=== PATIENT | female | born 1940 | race Caucasian/White ===

== ENCOUNTER 2017-01-30 17:39 | Emergency (ER) | payer MEDICARE ==
[~2017-01-30] VITALS: Ht 172.7 cm; Wt 60.0 kg
[~2017-01-30 17:39] MED LIST: ALBU8.5H8 INH; AMLO5TAB2 PO; AMLO5TAB4 PO; ASPI81TA50 PO; BUTA1CAP57 PO; DULO30CA2 PO; GUAI12003 PO; GUAI5SYR PO; HYDR-3307 PO; LANS15CA PO; LEVO112T4 PO; LEVO125T5 PO; LEVO150T5 PO; LEVO750T26 PO; LEVO750T6 PO; LISI2.5T PO; MECL-76 PO; METO25TA9 PO; METR500T8 PO; MIRT45TA3 PO; MIRT45TA6 PO; ONDA4VIA4 PO; POLY17PO5 PO; SIMV20TA3 PO; SIMV40TA3 PO; SIMV5TAB PO
[2017-01-30] MEDS ORDERED: ASPIRIN 81 MG TABLET CHEW ONE (17:54)
[2017-01-30] MEDS ORDERED: SODIUM CHLORIDE 0.9% 1,000ML IVBOLUS ONE (18:00)
[2017-01-30] MEDS ORDERED: SODIUM CHLORIDE FLUSH 10ML SYR IVF ONE (18:00)
[2017-01-30] MEDS ORDERED: ASPIRIN 81 MG TABLET CHEW PO ONE (18:00)
[2017-01-30 18:19] LABS: HEMATOCRIT 39.6 % (34.6-47.8); HEMOGLOBIN 13.2 g/dL (11.7-16.4); WHITE BLOOD COUNT 7.8 x10^3/uL (3.4-10)
[2017-01-30 18:31] LABS: BLOOD UREA NITROGEN 21 mg/dL (7-18)
[2017-01-30 18:37] LABS: ASPARTATE AMINO TRANSFERASE 15 U/L (15-37)
[2017-01-30 18:42] LABS: IS PT STATUS REG ER OR PRE ER? YES
[2017-01-30] MEDS ORDERED: MORPHINE SULFATE 4 MG/ML, 1ML ONE (19:21)
[2017-01-30] MEDS ORDERED: CEFTRIAXONE PMX 1GM/50ML 50 ML ONE (19:21)
[2017-01-30] MEDS ORDERED: ONDANSETRON 2MG/ML, 2ML ONE (19:21)
[2017-01-30] MEDS ORDERED: ONDANSETRON 2MG/ML, 2ML IVPush ONE (19:30)
[2017-01-30] MEDS ORDERED: CEFTRIAXONE PMX 1GM/50ML 50 ML IVPB ONE (19:30)
[2017-01-30] MEDS ORDERED: MORPHINE SULFATE 4 MG/ML, 1ML IVPush PRN (19:30)
[2017-01-30 20:46] VITALS: BP 143/89
== END 2017-01-30 20:48 | disposition home or self-care (01) ==
LOC: ED 17:57
DX: R07.2 Precordial pain (principal); R06.00 Dyspnea, unspecified; J02.8 Acute pharyngitis due to other specified organisms; I10 Essential (primary) hypertension; E11.9 Type 2 diabetes mellitus without complications; Z87.891 Personal history of nicotine dependence
CPT/HCPCS: 36415; 71010; 80053; 84484; 85025; 93005; 96361; 96365; 96375; 99285; J0696; J2405; J7030

== ENCOUNTER 2017-04-23 21:52 | Emergency (ER) | payer MEDICARE ==
[~2017-04-23] VITALS: Ht 172.7 cm; Wt 68.0 kg
[~2017-04-23 21:52] MED LIST changes: +METO-282 PO; -METO25TA9 PO; +SULF1TAB24 PO
[2017-04-23] MEDS ORDERED: ONDANSETRON 2MG/ML, 2ML ONE (21:58)
[2017-04-23] MEDS ORDERED: ONDANSETRON 2MG/ML, 2ML IVPush ONE (22:00)
[2017-04-23] MEDS ORDERED: BUPIVACAINE/PF 0.5% ONE (22:24)
[2017-04-23] MEDS ORDERED: DIPHENHYDRAMINE 50 MG/ML, 1ML IVPush ONE (22:30)
[2017-04-23] MEDS ORDERED: MORPHINE SULFATE 4 MG/ML, 1ML IVPush PRN (22:30)
[2017-04-23] MEDS ORDERED: SODIUM CHLORIDE 0.9% 1,000ML IVBOLUS ONE (22:30)
[2017-04-23] MEDS ORDERED: METOCLOPRAMIDE 5 MG/ML, 2ML IVPush ONE (22:30)
[2017-04-23] MEDS ORDERED: PLEASE ENTER HEIGHT AND WEIGHT MC SCH (22:30)
[2017-04-23 22:48] LABS: HEMATOCRIT 39.2 % (34.6-47.8); WHITE BLOOD COUNT 11.4 x10^3/uL (3.4-10)
[2017-04-23 22:56] LABS: BLOOD UREA NITROGEN 15 mg/dL (7-18)
[2017-04-23] MEDS ORDERED: DIPHENHYDRAMINE 50 MG/ML, 1ML ONE (23:01)
[2017-04-23] MEDS ORDERED: METOCLOPRAMIDE 5 MG/ML, 2ML ONE (23:01)
[2017-04-23] MEDS ORDERED: morphine SULFATE 10 MG/ML, 1ML ONE (23:18)
[2017-04-23] MEDS ORDERED: LIDOCAINE 1%, 10ML INFIL ONE (23:30)
[2017-04-24 01:22] LABS: PATH.CAST-FLAG NOT PRESENT; SPERM-FLAG NOT PRESENT; SRC-FLAG NOT PRESENT; XTAL-FLAG NOT PRESENT; YLC-FLAG NOT PRESENT
[2017-04-24 02:43] VITALS: BP 133/64
== END 2017-04-24 02:54 | disposition home or self-care (01) ==
LOC: ED 22:51
DX: R51 Headache (principal); R11.2 Nausea with vomiting, unspecified; M54.2 Cervicalgia; J44.9 Chronic obstructive pulmonary disease, unspecified; E78.00 Pure hypercholesterolemia, unspecified; I10 Essential (primary) hypertension; E11.9 Type 2 diabetes mellitus without complications; E03.9 Hypothyroidism, unspecified; Z86.73 Personal history of transient ischemic attack (TIA), and cerebral infarction without residual deficits; Z88.0 Allergy status to penicillin; Z88.1 Allergy status to other antibiotic agents; Z88.2 Allergy status to sulfonamides; Z88.8 Allergy status to other drugs, medicaments and biological substances; Z87.891 Personal history of nicotine dependence
CPT/HCPCS: 36415; 70450; 80048; 81001; 82040; 85025; 87086; 96374; 96375; 99285; J1200; J2405; J2765; J7030

== ENCOUNTER 2017-05-20 03:49 | Emergency (ER) | payer MEDICARE ==
[~2017-05-20] VITALS: Ht 172.7 cm; Wt 71.0 kg
[2017-05-20 03:58] VITALS: BP 185/101
[2017-05-20 04:39] LABS: BASOPHILS # (AUTO) 0.13 x10^3/uL (0-0.1); BASOPHILS % (AUTO) 2 % (0-1); EOSINOPHILS # (AUTO) 0.36 x10^3/uL (0-0.4); EOSINOPHILS % (AUTO) 4 % (1-7); LYMPHOCYTES # (AUTO) 1.58 x10^3/uL (1-3.4); LYMPHOCYTES % (AUTO) 18 % (22-44); MD NO; MEAN CORPUSCULAR HEMOGLOBIN 28.8 pg (27.0-34.8); MEAN CORPUSCULAR HGB CONC 33.3 g/dL (32.4-35.8); MEAN CORPUSCULAR VOLUME 86.5 fL (80-100); MEAN PLATELET VOLUME 9.6 fL (7.4-10.4); MONOCYTES # (AUTO) 0.49 x10^3/uL (0.2-0.8); MONOCYTES % (AUTO) 6 % (2-9); NEUTROPHILS # (AUTO) 6.32 x10^3/uL (1.8-6.8); NEUTROPHILS % (AUTO) 71 % (42-75); PLATELET COUNT 190 x10^3/uL (130-400); RED BLOOD COUNT 4.89 x10^6/uL (3.82-5.3); RED CELL DISTRIBUTION WIDTH 15.1 % (9.6-15.2)
[2017-05-20 04:45] LABS: ALBUMIN 3.5 g/dL (3.4-5.0); ANION GAP 7 mmol/L (5-15); CALCIUM 9.1 mg/dL (8.5-10.1); CHLORIDE 105 mmol/L (98-107); CREATININE 0.94 mg/dL (0.55-1.02)
[2017-05-20 04:48] LABS: TROPONIN I < 0.015 ng/mL (0.000-0.045)
[2017-05-20] MEDS ORDERED: KETOROLAC 30 MG/1 ML IVPush ONE (05:30)
[2017-05-20] MEDS ORDERED: KETOROLAC 30 MG/1 ML ONE (05:52)
== END 2017-05-20 06:06 | disposition home or self-care (01) ==
LOC: ED 06:00
DX: R07.89 Other chest pain (principal); G44.219 Episodic tension-type headache, not intractable; R05 Cough; E03.9 Hypothyroidism, unspecified; J44.9 Chronic obstructive pulmonary disease, unspecified; I10 Essential (primary) hypertension; E11.9 Type 2 diabetes mellitus without complications; E78.00 Pure hypercholesterolemia, unspecified; I25.2 Old myocardial infarction; M19.90 Unspecified osteoarthritis, unspecified site; M81.0 Age-related osteoporosis without current pathological fracture; Z90.49 Acquired absence of other specified parts of digestive tract; Z86.73 Personal history of transient ischemic attack (TIA), and cerebral infarction without residual deficits
CPT/HCPCS: 36415; 71045; 80048; 82040; 84484; 85025; 93005; 96374; 99285; J1885

== ENCOUNTER 2017-06-27 16:33 | Inpatient (IN) | payer MEDICARE ==
[~2017-06-27] VITALS: Ht 172.7 cm; Wt 69.3 kg
[2017-06-27] MEDS ORDERED: PLEASE ENTER HEIGHT AND WEIGHT MC SCH (17:00)
[2017-06-27] MEDS ORDERED: HYDROcodone/APAP 10/325 MG TABLET PO ONE (17:00)
[2017-06-27] MEDS ORDERED: SODIUM CHLORIDE 0.9%, 500ML IVBOLUS ONE (17:00)
[2017-06-27 17:25] LABS: ALANINE AMINOTRANSFERASE 22 U/L (12-78); ALBUMIN 3.1 g/dL (3.4-5.0); ANION GAP 7 mmol/L (5-15); CALCIUM 8.4 mg/dL (8.5-10.1); CHLORIDE 110 mmol/L (98-107)
[2017-06-27 17:27] LABS: BASOPHILS # (AUTO) 0.04 x10^3/uL (0-0.1); BASOPHILS % (AUTO) 1 % (0-1); EOSINOPHILS # (AUTO) 0.44 x10^3/uL (0-0.4); EOSINOPHILS % (AUTO) 7 % (1-7); LYMPHOCYTES # (AUTO) 1.24 x10^3/uL (1-3.4); LYMPHOCYTES % (AUTO) 20 % (22-44); MD NO; MEAN CORPUSCULAR HEMOGLOBIN 29.8 pg (27.0-34.8); MEAN CORPUSCULAR HGB CONC 33.4 g/dL (32.4-35.8); MEAN CORPUSCULAR VOLUME 89.2 fL (80-100); MEAN PLATELET VOLUME 9.4 fL (7.4-10.4); MONOCYTES # (AUTO) 0.48 x10^3/uL (0.2-0.8); MONOCYTES % (AUTO) 8 % (2-9); NEUTROPHILS # (AUTO) 4.05 x10^3/uL (1.8-6.8); NEUTROPHILS % (AUTO) 65 % (42-75); PLATELET COUNT 187 x10^3/uL (130-400); RED BLOOD COUNT 4.29 x10^6/uL (3.82-5.3); RED CELL DISTRIBUTION WIDTH 16.6 % (9.6-15.2)
[2017-06-27 17:28] LABS: ALKALINE PHOSPHATASE 130 U/L (45-117); BILIRUBIN,TOTAL 0.3 mg/dL (0.2-1.0); CREATININE 1.09 mg/dL (0.55-1.02); TOTAL PROTEIN 6.3 g/dL (6.4-8.2)
[2017-06-27] MEDS ORDERED: HYDROcodone/APAP 10/325 MG TABLET ONE (17:36)
[2017-06-27 18:09] LABS: RAPID INFLUENZA A Negative (Negative); RAPID INFLUENZA B Negative (Negative)
[2017-06-27] MEDS ORDERED: methylPREDNISolone SOD SUCC 125 MG/2 ML IVPush SCH (18:30)
[2017-06-27] MEDS ORDERED: ALBUTEROL/IPRATROPIUM 2.5MG/0.5MG, 3 ML NPPB ONE (18:30)
[2017-06-27] MEDS ORDERED: MIRT30TA PO (18:30)
[2017-06-27] MEDS ORDERED: ALBUTEROL/IPRATROPIUM 2.5MG/0.5MG, 3 ML ONE (18:40)
[2017-06-27] MEDS ORDERED: methylPREDNISolone SOD SUCC 125 MG/2 ML ONE (18:49)
[2017-06-27] MEDS ORDERED: ACETAMINOPHEN 325 MG TABLET PO PRN (19:00)
[2017-06-27] MEDS ORDERED: OXYcodone IR 5MG TABLET PO PRN (19:00)
[2017-06-27] MEDS ORDERED: ENALAPRILAT 1.25 MG/ML, 2ML IVPush PRN (19:00)
[2017-06-27] MEDS ORDERED: POLYETHYLENE GLYCOL 17 GM PACKET PO PRN (19:00)
[2017-06-27] MEDS ORDERED: BISACODYL 10 MG SUPP PR PRN (19:00)
[2017-06-27] MEDS: methylPREDNISolone SOD SUCC 125 MG/2 ML IVPush SCH (19:25)
[2017-06-27 19:28] LABS: HEMOGLOBIN A1C 5.4 % (4.2-6.3)
[2017-06-27 19:29] LABS: FREE T4 (FREE THYROXINE) 1.38 ng/dL (0.76-1.46); THYROID STIMULATING HORMONE 0.544 mIU/L (0.358-3.740)
[2017-06-27] MEDS ORDERED: ALBUTEROL SULFATE 2.5 MG/3 ML NEB PRN (19:30)
[2017-06-27] MEDS ORDERED: MECLIZINE CHEWABLE 25 MG TAB PO SCH (19:30)
[2017-06-27] MEDS ORDERED: POTASSIUM CHLORIDE 20 MEQ TAB.ER.PRT PO ONE (19:30)
[2017-06-27] MEDS: MIRTAZAPINE 30 MG TAB.RAPDIS PO SCH (21:00)
[2017-06-27] MEDS ORDERED: ENOXAPARIN 30 MG/0.3 ML SQ SCH (21:30)
[2017-06-27 21:41] VITALS: BP 179/95
[2017-06-27] MEDS: DOXYCYCLINE 100MG TABLET PO SCH (21:53)
[2017-06-27] MEDS: DULOXETINE 30 MG CAPSULE.DR PO SCH (21:53)
[2017-06-27] MEDS: HYDROcodone/APAP 10/325 MG TABLET PO SCH (21:54)
[2017-06-27] MEDS: hydrALAzine 20 MG/ML, 1ML IVPush PRN (21:54)
[2017-06-27] MEDS: FAMOTIDINE 20 MG/2 ML IVPush SCH (21:54)
[2017-06-27] MEDS: SIMVASTATIN 40 MG TABLET PO SCH (21:54)
[2017-06-27 22:50] VITALS: BP 157/97
[2017-06-27] MEDS: FUROSEMIDE 20 MG/2 ML IV SCH (23:10)
[2017-06-28 00:09] LABS: MICROSCOPIC AUTO
[2017-06-28 00:10] LABS: CULTURE INDICATED? YES
[2017-06-28 00:13] LABS: TROPONIN I < 0.015 ng/mL (0.000-0.045)
[2017-06-28 00:49] VITALS: BP 163/80
[2017-06-28] MEDS: methylPREDNISolone SOD SUCC 125 MG/2 ML IVPush SCH ×4 (00:51→18:14)
[2017-06-28] MEDS: HYDROcodone/APAP 10/325 MG TABLET PO SCH ×3 (03:30→21:54)
[2017-06-28 06:11] LABS: BASOPHILS # (AUTO) 0.01 x10^3/uL (0-0.1); BASOPHILS % (AUTO) 0 % (0-1); EOSINOPHILS % (AUTO) 0 % (1-7); LYMPHOCYTES # (AUTO) 0.53 x10^3/uL (1-3.4); LYMPHOCYTES % (AUTO) 10 % (22-44); MD NO; MEAN CORPUSCULAR HEMOGLOBIN 29.6 pg (27.0-34.8); MEAN CORPUSCULAR HGB CONC 33.4 g/dL (32.4-35.8); MEAN CORPUSCULAR VOLUME 88.7 fL (80-100); MEAN PLATELET VOLUME 9.3 fL (7.4-10.4); MONOCYTES # (AUTO) 0.06 x10^3/uL (0.2-0.8); MONOCYTES % (AUTO) 1 % (2-9); NEUTROPHILS # (AUTO) 4.82 x10^3/uL (1.8-6.8); NEUTROPHILS % (AUTO) 89 % (42-75); PLATELET COUNT 221 x10^3/uL (130-400); RED BLOOD COUNT 4.61 x10^6/uL (3.82-5.3); RED CELL DISTRIBUTION WIDTH 16.3 % (9.6-15.2)
[2017-06-28 06:15] LABS: ALANINE AMINOTRANSFERASE 23 U/L (12-78); ALBUMIN 3.2 g/dL (3.4-5.0); ANION GAP 7 mmol/L (5-15); CHLORIDE 109 mmol/L (98-107)
[2017-06-28 06:17] LABS: ALKALINE PHOSPHATASE 126 U/L (45-117); BILIRUBIN,TOTAL 0.3 mg/dL (0.2-1.0); CHOL/HDL RATIO 2.7; CHOLESTEROL, TOTAL 149 mg/dL (140-239); CREATININE 0.95 mg/dL (0.55-1.02); HDL CHOL % 38 % (28-40); HDL CHOLESTEROL (DIRECT) 56 mg/dL (40-60); LDL CHOLESTEROL,CALCULATED 79 mg/dL (54-169); LDL/HDL RATIO 1.4 (0.5-3.0); TOTAL PROTEIN 6.9 g/dL (6.4-8.2); TRIGLYCERIDES 68 mg/dL (50-200); VLDL CHOLESTEROL 14 mg/dL (0-25)
[2017-06-28 07:01] LABS: TROPONIN I < 0.015 ng/mL (0.000-0.045)
[2017-06-28] MEDS: ALBUTEROL/IPRATROPIUM 2.5MG/0.5MG, 3 ML NPPB SCH ×4 (07:13→19:31)
[2017-06-28] MEDS: LEVOTHYROXINE 112 MCG TABLET PO SCH (08:07)
[2017-06-28] MEDS: SENNA/DOCUSATE TABLET PO SCH (08:07)
[2017-06-28] MEDS: DULOXETINE 30 MG CAPSULE.DR PO SCH ×2 (08:07→21:55)
[2017-06-28] MEDS: ASPIRIN 325 MG TABLET EC PO SCH (08:07)
[2017-06-28] MEDS: DOXYCYCLINE 100MG TABLET PO SCH ×2 (08:07→21:54)
[2017-06-28] MEDS: OMEPRAZOLE 10 MG CAPSULE.DR PO SCH (08:07)
[2017-06-28] MEDS: FAMOTIDINE 20 MG/2 ML IVPush SCH ×2 (08:18→21:55)
[2017-06-28] MEDS: ONDANSETRON 2MG/ML, 2ML IVPush PRN (08:18)
[2017-06-28 08:53] VITALS: BP 178/97
[2017-06-28] MEDS ORDERED: LISINOPRIL 5 MG TABLET PO SCH (09:00)
[2017-06-28] MEDS: FLUTICASONE/VILANTEROL 200-25MCG/INH INH SCH (09:33)
[2017-06-28] MEDS: hydrALAzine 20 MG/ML, 1ML IVPush PRN (09:39)
[2017-06-28] MEDS: morphine SULFATE 10 MG/ML, 1ML IVPush PRN ×2 (09:39→14:13)
[2017-06-28] MEDS: GUAIFENESIN ER 600 MG TABLET PO SCH ×2 (13:49→21:55)
[2017-06-28 13:54] VITALS: BP 145/70
[2017-06-28 19:17] VITALS: BP 146/81
[2017-06-28] MEDS: MIRTAZAPINE 30 MG TAB.RAPDIS PO SCH (21:55)
[2017-06-28] MEDS: SIMVASTATIN 40 MG TABLET PO SCH (21:55)
[2017-06-28] MEDS: ENOXAPARIN 40 MG/0.4 ML SQ SCH (22:03)
[2017-06-28] MEDS: FUROSEMIDE 20 MG/2 ML IV SCH (22:03)
[2017-06-29] MEDS: methylPREDNISolone SOD SUCC 125 MG/2 ML IVPush SCH ×3 (02:17→13:00)
[2017-06-29 03:27] VITALS: BP 128/77
[2017-06-29] MEDS: HYDROcodone/APAP 10/325 MG TABLET PO SCH ×3 (03:30→20:33)
[2017-06-29 05:26] LABS: ANION GAP 6 mmol/L (5-15); CALCIUM 8.8 mg/dL (8.5-10.1); CHLORIDE 107 mmol/L (98-107); CREATININE 1.48 mg/dL (0.55-1.02)
[2017-06-29] MEDS: LEVOTHYROXINE 112 MCG TABLET PO SCH (06:21)
[2017-06-29] MEDS: ALBUTEROL/IPRATROPIUM 2.5MG/0.5MG, 3 ML NPPB SCH ×4 (06:33→20:07)
[2017-06-29 07:37] VITALS: BP 139/76
[2017-06-29] MEDS ORDERED: LISINOPRIL 5 MG TABLET PO SCH (09:00)
[2017-06-29] MEDS: FAMOTIDINE 20 MG/2 ML IVPush SCH (09:00)
[2017-06-29] MEDS: SENNA/DOCUSATE TABLET PO SCH (09:11)
[2017-06-29] MEDS: ASPIRIN 325 MG TABLET EC PO SCH (09:11)
[2017-06-29] MEDS: DULOXETINE 30 MG CAPSULE.DR PO SCH ×2 (09:11→20:33)
[2017-06-29] MEDS: OMEPRAZOLE 10 MG CAPSULE.DR PO SCH (09:11)
[2017-06-29] MEDS: FLUTICASONE/VILANTEROL 200-25MCG/INH INH SCH (09:11)
[2017-06-29] MEDS: GUAIFENESIN ER 600 MG TABLET PO SCH ×2 (09:11→20:33)
[2017-06-29] MEDS: DOXYCYCLINE 100MG TABLET PO SCH ×2 (09:11→20:33)
[2017-06-29] MEDS: AMLODIPINE 5 MG TABLET PO SCH (09:11)
[2017-06-29] MEDS: FLUTICASONE NASAL SPRAY 16GM NAS SCH ×2 (11:51→20:33)
[2017-06-29] MEDS: SODIUM CHLORIDE NASAL SPRAY 45ML BOTTLE NAS SCH ×2 (11:52→20:34)
[2017-06-29 14:32] VITALS: BP 111/52
[2017-06-29] MEDS ORDERED: PHARMACY MAY ADJ FOR RENAL FX MC PRN (15:00)
[2017-06-29] MEDS ORDERED: ERGOCALCIFEROL 50,000 UNIT CAPSULE PO SCH (15:00)
[2017-06-29] MEDS ORDERED: SODIUM CHLORIDE 0.9% 1,000 ML IV SCH (17:16)
[2017-06-29 19:28] VITALS: BP 144/81
[2017-06-29] MEDS: MIRTAZAPINE 30 MG TAB.RAPDIS PO SCH (20:33)
[2017-06-29] MEDS: SIMVASTATIN 40 MG TABLET PO SCH (20:34)
[2017-06-29] MEDS: ENOXAPARIN 40 MG/0.4 ML SQ SCH (20:35)
[2017-06-30 02:01] VITALS: BP 158/85
[2017-06-30] MEDS: HYDROcodone/APAP 10/325 MG TABLET PO SCH ×3 (03:30→21:03)
[2017-06-30] MEDS: ONDANSETRON 2MG/ML, 2ML IVPush PRN ×2 (05:32→12:50)
[2017-06-30] MEDS: LEVOTHYROXINE 112 MCG TABLET PO SCH (05:32)
[2017-06-30 05:50] LABS: ANION GAP 5 mmol/L (5-15); CALCIUM 8.7 mg/dL (8.5-10.1); CHLORIDE 109 mmol/L (98-107); CREATININE 0.88 mg/dL (0.55-1.02)
[2017-06-30] MEDS: ALBUTEROL/IPRATROPIUM 2.5MG/0.5MG, 3 ML NPPB SCH ×4 (06:00→20:35)
[2017-06-30 08:11] VITALS: BP 164/92
[2017-06-30] MEDS: FLUTICASONE/VILANTEROL 200-25MCG/INH INH SCH (09:00)
[2017-06-30] MEDS: SENNA/DOCUSATE TABLET PO SCH (09:00)
[2017-06-30] MEDS: FLUTICASONE NASAL SPRAY 16GM NAS SCH ×2 (09:00→21:00)
[2017-06-30] MEDS: SODIUM CHLORIDE NASAL SPRAY 45ML BOTTLE NAS SCH ×2 (09:00→21:00)
[2017-06-30] MEDS: DULOXETINE 30 MG CAPSULE.DR PO SCH ×2 (09:24→21:03)
[2017-06-30] MEDS: AMLODIPINE 5 MG TABLET PO SCH (09:24)
[2017-06-30] MEDS: ASPIRIN 325 MG TABLET EC PO SCH (09:24)
[2017-06-30] MEDS: OMEPRAZOLE 10 MG CAPSULE.DR PO SCH (09:24)
[2017-06-30] MEDS: GUAIFENESIN ER 600 MG TABLET PO SCH ×2 (09:24→21:03)
[2017-06-30] MEDS: DOXYCYCLINE 100MG TABLET PO SCH ×2 (09:25→21:03)
[2017-06-30 13:01] VITALS: BP 166/104
[2017-06-30] MEDS: hydrALAzine 20 MG/ML, 1ML IVPush PRN (13:19)
[2017-06-30 13:48] VITALS: BP 156/90
[2017-06-30] MEDS: PROCHLORPERAZINE 5 MG/ML, 2ML IM PRN ×2 (14:27→21:13)
[2017-06-30 19:04] VITALS: BP 147/79
[2017-06-30] MEDS: MIRTAZAPINE 30 MG TAB.RAPDIS PO SCH (21:03)
[2017-06-30] MEDS: SIMVASTATIN 40 MG TABLET PO SCH (21:04)
[2017-06-30] MEDS: ENOXAPARIN 40 MG/0.4 ML SQ SCH (21:14)
[2017-07-01 00:55] VITALS: BP 112/71
[2017-07-01] MEDS: LEVOTHYROXINE 112 MCG TABLET PO SCH (05:34)
[2017-07-01] MEDS: HYDROcodone/APAP 10/325 MG TABLET PO SCH ×3 (05:40→20:48)
[2017-07-01 06:52] VITALS: BP 128/74
[2017-07-01] MEDS: ALBUTEROL/IPRATROPIUM 2.5MG/0.5MG, 3 ML NPPB SCH ×3 (07:48→20:36)
[2017-07-01] MEDS: SODIUM CHLORIDE NASAL SPRAY 45ML BOTTLE NAS SCH ×2 (09:20→20:50)
[2017-07-01] MEDS: FLUTICASONE/VILANTEROL 200-25MCG/INH INH SCH (09:20)
[2017-07-01] MEDS: OMEPRAZOLE 10 MG CAPSULE.DR PO SCH (09:21)
[2017-07-01] MEDS: GUAIFENESIN ER 600 MG TABLET PO SCH ×2 (09:21→20:48)
[2017-07-01] MEDS: DOXYCYCLINE 100MG TABLET PO SCH ×2 (09:21→20:47)
[2017-07-01] MEDS: FLUTICASONE NASAL SPRAY 16GM NAS SCH ×2 (09:21→20:49)
[2017-07-01] MEDS: SENNA/DOCUSATE TABLET PO SCH (09:22)
[2017-07-01] MEDS: ASPIRIN 325 MG TABLET EC PO SCH (09:22)
[2017-07-01] MEDS: AMLODIPINE 5 MG TABLET PO SCH (09:22)
[2017-07-01] MEDS: DULOXETINE 30 MG CAPSULE.DR PO SCH ×2 (09:22→20:47)
[2017-07-01] MEDS: PROCHLORPERAZINE 5 MG/ML, 2ML IM PRN ×2 (09:38→18:42)
[2017-07-01 12:52] VITALS: BP 151/81
[2017-07-01 20:00] VITALS: BP 130/82
[2017-07-01] MEDS: MIRTAZAPINE 30 MG TAB.RAPDIS PO SCH (20:47)
[2017-07-01] MEDS: SIMVASTATIN 40 MG TABLET PO SCH (20:48)
[2017-07-01] MEDS: ENOXAPARIN 40 MG/0.4 ML SQ SCH (20:49)
[2017-07-02 02:13] VITALS: BP 152/98
[2017-07-02] MEDS: HYDROcodone/APAP 10/325 MG TABLET PO SCH ×2 (06:25→15:05)
[2017-07-02] MEDS: LEVOTHYROXINE 112 MCG TABLET PO SCH (06:25)
[2017-07-02] MEDS ORDERED: GUAI600T31 PO (08:01)
[2017-07-02] MEDS ORDERED: PRED20TA PO (08:01)
[2017-07-02] MEDS ORDERED: FLUT1BLS INH (08:01)
[2017-07-02] MEDS ORDERED: DOXY100T PO (08:01)
[2017-07-02] MEDS ORDERED: FLUT16SP NAS (08:04)
[2017-07-02] MEDS: SENNA/DOCUSATE TABLET PO SCH (08:31)
[2017-07-02] MEDS: FLUTICASONE/VILANTEROL 200-25MCG/INH INH SCH (08:33)
[2017-07-02] MEDS: SODIUM CHLORIDE NASAL SPRAY 45ML BOTTLE NAS SCH (08:33)
[2017-07-02] MEDS: DULOXETINE 30 MG CAPSULE.DR PO SCH (08:34)
[2017-07-02] MEDS: DOXYCYCLINE 100MG TABLET PO SCH (08:34)
[2017-07-02] MEDS: GUAIFENESIN ER 600 MG TABLET PO SCH (08:34)
[2017-07-02] MEDS: FLUTICASONE NASAL SPRAY 16GM NAS SCH (08:34)
[2017-07-02] MEDS: AMLODIPINE 5 MG TABLET PO SCH (08:34)
[2017-07-02] MEDS: ASPIRIN 325 MG TABLET EC PO SCH (08:34)
[2017-07-02] MEDS: OMEPRAZOLE 10 MG CAPSULE.DR PO SCH (08:34)
[2017-07-02 08:39] VITALS: BP 145/97
[2017-07-02] MEDS ORDERED: ONDANSETRON 4 MG TABLET PO PRN (09:00)
[2017-07-02] MEDS: ALBUTEROL/IPRATROPIUM 2.5MG/0.5MG, 3 ML NPPB SCH (09:25)
[2017-07-02 14:19] VITALS: BP 140/95
== END 2017-07-02 15:38 | disposition home or self-care (01) | DRG 682 ==
LOC: ED 17:56 → EDIP 18:28 → 4WST 21:16
PROVIDERS: ADMIT Internal Medicine; ATTEND Hospitalist
DX: N17.0 Acute kidney failure with tubular necrosis (principal); J96.20 Acute and chronic respiratory failure, unspecified whether with hypoxia or hypercapnia; E44.0 Moderate protein-calorie malnutrition; I07.1 Rheumatic tricuspid insufficiency; E11.9 Type 2 diabetes mellitus without complications; J32.0 Chronic maxillary sinusitis; J44.1 Chronic obstructive pulmonary disease with (acute) exacerbation; E03.9 Hypothyroidism, unspecified; I25.10 Atherosclerotic heart disease of native coronary artery without angina pectoris; E87.6 Hypokalemia; E78.5 Hyperlipidemia, unspecified; E55.9 Vitamin D deficiency, unspecified; E78.00 Pure hypercholesterolemia, unspecified; G89.29 Other chronic pain; M54.2 Cervicalgia; I11.9 Hypertensive heart disease without heart failure; I25.2 Old myocardial infarction; I35.8 Other nonrheumatic aortic valve disorders; K21.9 Gastro-esophageal reflux disease without esophagitis; K59.00 Constipation, unspecified; M79.7 Fibromyalgia; M81.0 Age-related osteoporosis without current pathological fracture; Z86.711 Personal history of pulmonary embolism; Z86.73 Personal history of transient ischemic attack (TIA), and cerebral infarction without residual deficits; Z87.891 Personal history of nicotine dependence; Z90.710 Acquired absence of both cervix and uterus; Z88.6 Allergy status to analgesic agent; Z88.3 Allergy status to other anti-infective agents; Z88.2 Allergy status to sulfonamides; Z88.8 Allergy status to other drugs, medicaments and biological substances; Z90.49 Acquired absence of other specified parts of digestive tract; Z68.23 Body mass index [BMI] 23.0-23.9, adult
CPT/HCPCS: 36415; 70450; 71045; 71250; 74018; 80048; 80053; 80061; 81001; 82306; 82607; 82962; 83036; 83605; 83735; 84145; 84439; 84443; 84484; 85025; 87040; 87086; 87400; 93005; 93306; 94640; 96374; J1650; J2405; J7620; Q0162; J0360; J0780; J1940; J2270; J2930; J7030; J7040; J7512; S0028

== ENCOUNTER 2018-01-31 09:32 | Inpatient (IN) | payer MEDICARE ==
[~2018-01-31] VITALS: Ht 172.7 cm; Wt 70.8 kg
[~2018-01-31 09:32] MED LIST changes: -AMLO5TAB2 PO; +AMLO5TAB7 PO; +DOXY100T PO; +FLUT16SP NAS; +FLUT1BLS INH; +GUAI600T31 PO; +MIRT30TA PO; -ONDA4VIA4 PO; +ONDA4VIA8 PO; +PRED20TA PO
[2018-01-31] MEDS ORDERED: SODIUM CHLORIDE 0.9% 1,000ML IVBOLUS ONE (10:00)
[2018-01-31 10:26] LABS: BASOPHILS % (AUTO) 1 % (0-1); EOSINOPHILS # (AUTO) 0.26 x10^3/uL (0-0.4); EOSINOPHILS % (AUTO) 3 % (1-7); LYMPHOCYTES % (AUTO) 11 % (22-44); MD NO; MEAN CORPUSCULAR HEMOGLOBIN 30.7 pg (27.0-34.8); MEAN CORPUSCULAR HGB CONC 33.9 g/dL (32.4-35.8); MEAN CORPUSCULAR VOLUME 90.3 fL (80-100); MEAN PLATELET VOLUME 8.9 fL (7.4-10.4); MONOCYTES # (AUTO) 0.52 x10^3/uL (0.2-0.8); MONOCYTES % (AUTO) 6 % (2-9); NEUTROPHILS # (AUTO) 7.51 x10^3/uL (1.8-6.8); NEUTROPHILS % (AUTO) 80 % (42-75); PLATELET COUNT 255 x10^3/uL (130-400); RED BLOOD COUNT 4.46 x10^6/uL (3.82-5.3); RED CELL DISTRIBUTION WIDTH 13.1 % (9.6-15.2)
[2018-01-31] MEDS ORDERED: ACETAMINOPHEN 500 MG TABLET ONE (10:30)
[2018-01-31 10:37] LABS: ALANINE AMINOTRANSFERASE 17 U/L (12-78); ALBUMIN 3.2 g/dL (3.4-5.0); ANION GAP 8 mmol/L (5-15); CALCIUM 8.5 mg/dL (8.5-10.1); CHLORIDE 111 mmol/L (98-107); CREATININE 1.13 mg/dL (0.55-1.02)
[2018-01-31 10:42] LABS: ALKALINE PHOSPHATASE 107 U/L (45-117); BILIRUBIN,TOTAL 0.4 mg/dL (0.2-1.0); TOTAL PROTEIN 6.4 g/dL (6.4-8.2); TROPONIN I < 0.015 ng/mL (0.000-0.045)
[2018-01-31] MEDS ORDERED: SODIUM CHLORIDE FLUSH 10ML SYR IVF ONE (11:00)
[2018-01-31] MEDS ORDERED: ACETAMINOPHEN 500 MG TABLET PO ONE (11:00)
[2018-01-31] MEDS ORDERED: IBUPROFEN 200 MG TABLET PO ONE (11:30)
[2018-01-31] MEDS ORDERED: IBUPROFEN 200 MG TABLET ONE (12:16)
[2018-01-31] MEDS ORDERED: LOSA50TA7 PO (13:44)
[2018-01-31] MEDS ORDERED: ALBU18HF INH (13:46)
[2018-01-31] MEDS ORDERED: TIOT18CA INH (13:46)
[2018-01-31] MEDS ORDERED: HYDR-3240 PO (13:47)
[2018-01-31] MEDS ORDERED: ASPI-650 PO (14:03)
[2018-01-31] MEDS ORDERED: ASA/APAP/ CAFFEINE TABLET PO PRN (15:00)
[2018-01-31] MEDS ORDERED: DOCUSATE 100 MG CAPSULE PO PRN (15:00)
[2018-01-31] MEDS ORDERED: NITROGLYCERIN 0.4 MG BOTTLE (25 TABS) SL PRN ×2 (15:00)
[2018-01-31] MEDS ORDERED: ALBUTEROL/IPRATROPIUM 2.5MG/0.5MG, 3 ML NPPB PRN (15:00)
[2018-01-31] MEDS ORDERED: GUAIFENESIN/DM 200-20MG, 10ML UDC PO PRN (15:00)
[2018-01-31] MEDS ORDERED: MECLIZINE CHEWABLE 25 MG TAB PO PRN (15:00)
[2018-01-31] MEDS ORDERED: hydrALAzine 20 MG/ML, 1ML IVPush PRN (15:00)
[2018-01-31] MEDS ORDERED: ENALAPRILAT 1.25 MG/ML, 2ML IVPush PRN (15:00)
[2018-01-31] MEDS ORDERED: ENOXAPARIN 40 MG/0.4 ML SQ SCH (15:00)
[2018-01-31] MEDS ORDERED: ACETAMINOPHEN 325 MG TABLET PO PRN (15:00)
[2018-01-31] MEDS ORDERED: ONDANSETRON 2MG/ML, 2ML IVPush PRN (15:00)
[2018-01-31] MEDS ORDERED: ONDANSETRON ODT 4 MG PO PRN (15:00)
[2018-01-31] MEDS ORDERED: IBUPROFEN 600 MG TABLET PO PRN (15:00)
[2018-01-31] MEDS ORDERED: NITROGLYCERIN 0.4 MG/SPRAY SL PRN (15:00)
[2018-01-31] MEDS ORDERED: ENOXAPARIN 40 MG/0.4 ML ONE (15:20)
[2018-01-31] MEDS ORDERED: HYDROcodone/APAP 5/325 TABLET ONE (15:21)
[2018-01-31] MEDS: HYDROcodone/APAP 5/325 TABLET PO PRN ×2 (15:24→20:09)
[2018-01-31 15:37] LABS: CULTURE INDICATED? YES; MICROSCOPIC INDICATED
[2018-01-31 18:42] VITALS: BP 126/70
[2018-01-31] MEDS: DULOXETINE 30 MG CAPSULE.DR PO SCH (20:09)
[2018-01-31] MEDS: SIMVASTATIN 40 MG TABLET PO SCH (20:10)
[2018-01-31] MEDS ORDERED: IPRATROPIUM 0.5 MG/2.5 ML INHA HHN SCH (21:00)
[2018-01-31] MEDS ORDERED: LANSOPRAZOLE 15 MG PO SCH (21:00)
[2018-01-31] MEDS: MIRTAZAPINE 30 MG TAB.RAPDIS PO SCH (21:45)
[2018-01-31 22:06] VITALS: BP 125/68
[2018-02-01 01:58] VITALS: BP 137/85
[2018-02-01 04:50] LABS: BASOPHILS # (AUTO) 0.05 x10^3/uL (0-0.1); BASOPHILS % (AUTO) 1 % (0-1); EOSINOPHILS # (AUTO) 0.47 x10^3/uL (0-0.4); EOSINOPHILS % (AUTO) 6 % (1-7); LYMPHOCYTES # (AUTO) 1.99 x10^3/uL (1-3.4); LYMPHOCYTES % (AUTO) 26 % (22-44); MD NO; MEAN CORPUSCULAR HGB CONC 33.2 g/dL (32.4-35.8); MEAN CORPUSCULAR VOLUME 90.3 fL (80-100); MEAN PLATELET VOLUME 8.8 fL (7.4-10.4); MONOCYTES # (AUTO) 0.52 x10^3/uL (0.2-0.8); MONOCYTES % (AUTO) 7 % (2-9); NEUTROPHILS # (AUTO) 4.55 x10^3/uL (1.8-6.8); NEUTROPHILS % (AUTO) 60 % (42-75); PLATELET COUNT 220 x10^3/uL (130-400); RED BLOOD COUNT 4.06 x10^6/uL (3.82-5.3); RED CELL DISTRIBUTION WIDTH 13.3 % (9.6-15.2)
[2018-02-01 05:00] LABS: ANION GAP 5 mmol/L (5-15); CALCIUM 8.8 mg/dL (8.5-10.1); CHLORIDE 108 mmol/L (98-107)
[2018-02-01 05:11] LABS: CHOL/HDL RATIO 3.8; CHOLESTEROL, TOTAL 141 mg/dL (140-239); CREATININE 1.69 mg/dL (0.55-1.02); HDL CHOL % 26 % (28-40); HDL CHOLESTEROL (DIRECT) 37 mg/dL (40-60); HEMOGLOBIN A1C 5.6 % (4.2-6.3); LDL CHOLESTEROL,CALCULATED 71 mg/dL (54-169); LDL/HDL RATIO 1.9 (0.5-3.0); THYROID STIMULATING HORMONE 0.164 mIU/L (0.358-3.740); TRIGLYCERIDES 163 mg/dL (50-200); VLDL CHOLESTEROL 33 mg/dL (0-25)
[2018-02-01 07:23] VITALS: BP 142/81
[2018-02-01 08:31] LABS: TROPONIN I < 0.015 ng/mL (0.000-0.045)
[2018-02-01] MEDS: HYDROcodone/APAP 5/325 TABLET PO PRN ×3 (08:37→21:18)
[2018-02-01] MEDS: LEVOTHYROXINE 112 MCG TABLET PO SCH (09:00)
[2018-02-01] MEDS: IPRATROPIUM 0.5 MG/2.5 ML INHA NPPB SCH ×3 (09:40→20:59)
[2018-02-01] MEDS ORDERED: REGADENOSON 0.4 MG/5 ML SYRINGE ONE (11:01)
[2018-02-01] MEDS: ASPIRIN 325 MG TABLET EC PO SCH (13:13)
[2018-02-01] MEDS: LOSARTAN 50MG TABLET PO SCH (13:14)
[2018-02-01] MEDS: DULOXETINE 30 MG CAPSULE.DR PO SCH ×2 (13:14→20:51)
[2018-02-01] MEDS ORDERED: ACET325T14 PO (13:33)
[2018-02-01] MEDS ORDERED: CEFTRIAXONE 2 GM in SODIUM CHLORIDE 0.9% 50 ML IV SCH (14:00)
[2018-02-01 14:32] VITALS: BP 151/86
[2018-02-01] MEDS: OMEPRAZOLE 20 MG CAPSULE.DR PO SCH (20:51)
[2018-02-01] MEDS: MIRTAZAPINE 30 MG TAB.RAPDIS PO SCH (20:51)
[2018-02-01] MEDS: SIMVASTATIN 40 MG TABLET PO SCH (20:52)
[2018-02-01 21:14] VITALS: BP 135/82
[2018-02-02 02:28] VITALS: BP 110/68
[2018-02-02] MEDS: IPRATROPIUM 0.5 MG/2.5 ML INHA NPPB SCH (03:00)
[2018-02-02] MEDS ORDERED: ERGOCALCIFEROL 50,000 UNIT CAPSULE PO SCH (07:00)
[2018-02-02] MEDS ORDERED: PANTOPROZOLE 40MG TABLET PO SCH (07:30)
[2018-02-02 07:36] LABS: ANION GAP 9 mmol/L (5-15); CALCIUM 8.8 mg/dL (8.5-10.1); CHLORIDE 110 mmol/L (98-107); CREATININE 1.02 mg/dL (0.55-1.02)
[2018-02-02 08:30] VITALS: BP 133/89
[2018-02-02] MEDS ORDERED: HYDROCHLOROTHIAZIDE 12.5 MG CAPSULE PO SCH (09:00)
[2018-02-02] MEDS ORDERED: HYDR12.53 PO (09:17)
[2018-02-02] MEDS ORDERED: CEFD300C37 PO (09:19)
[2018-02-02] MEDS: OMEPRAZOLE 20 MG CAPSULE.DR PO SCH (09:55)
[2018-02-02] MEDS: LOSARTAN 50MG TABLET PO SCH (09:55)
[2018-02-02] MEDS: ASPIRIN 325 MG TABLET EC PO SCH (09:55)
[2018-02-02] MEDS: LEVOTHYROXINE 112 MCG TABLET PO SCH (09:55)
[2018-02-02] MEDS: DULOXETINE 30 MG CAPSULE.DR PO SCH (09:55)
[2018-02-02] MEDS: HYDROcodone/APAP 5/325 TABLET PO PRN (12:57)
== END 2018-02-02 13:33 | disposition home or self-care (01) | DRG 291 ==
LOC: ED 11:18 → EDIP 11:19 → INTOOBSV 11:19 → ED 11:24 → OBSVTOIN 14:33 → 5SO 18:35 → 4EST 02-01 23:29
PROVIDERS: ADMIT Internal Medicine; ATTEND Internal Medicine
DX: I11.0 Hypertensive heart disease with heart failure (principal); J96.20 Acute and chronic respiratory failure, unspecified whether with hypoxia or hypercapnia; N39.0 Urinary tract infection, site not specified; E44.0 Moderate protein-calorie malnutrition; I50.30 Unspecified diastolic (congestive) heart failure; J44.9 Chronic obstructive pulmonary disease, unspecified; I25.2 Old myocardial infarction; G43.909 Migraine, unspecified, not intractable, without status migrainosus; E03.9 Hypothyroidism, unspecified; I10 Essential (primary) hypertension; E11.9 Type 2 diabetes mellitus without complications; B96.20 Unspecified Escherichia coli [E. coli] as the cause of diseases classified elsewhere; M81.0 Age-related osteoporosis without current pathological fracture; G89.29 Other chronic pain; M54.9 Dorsalgia, unspecified; F32.9 Major depressive disorder, single episode, unspecified; G44.209 Tension-type headache, unspecified, not intractable; R07.89 Other chest pain; E78.00 Pure hypercholesterolemia, unspecified; E78.5 Hyperlipidemia, unspecified; M19.90 Unspecified osteoarthritis, unspecified site; M79.7 Fibromyalgia; Z90.710 Acquired absence of both cervix and uterus; Z87.891 Personal history of nicotine dependence; Z86.73 Personal history of transient ischemic attack (TIA), and cerebral infarction without residual deficits; Z86.711 Personal history of pulmonary embolism; Z90.49 Acquired absence of other specified parts of digestive tract; Z82.49 Family history of ischemic heart disease and other diseases of the circulatory system; Z91.041 Radiographic dye allergy status; Z88.0 Allergy status to penicillin; Z88.2 Allergy status to sulfonamides; Z88.5 Allergy status to narcotic agent; Z88.8 Allergy status to other drugs, medicaments and biological substances; Z79.82 Long term (current) use of aspirin; Z79.899 Other long term (current) drug therapy; Z68.23 Body mass index [BMI] 23.0-23.9, adult; Z99.81 Dependence on supplemental oxygen; I25.110 Atherosclerotic heart disease of native coronary artery with unstable angina pectoris
CPT/HCPCS: 36415; 71045; 78452; 80048; 80053; 80061; 81001; 82306; 82607; 83036; 83735; 84443; 84484; 85025; 85379; 87077; 87086; 87186; 93005; 93017; 93306; 94640; 96360; 96361; 96372; 99285; G0378; J0696; J1650; J2785; J7644; A9502; C9898; J7030

== ENCOUNTER 2018-03-23 14:42 | Observation (INO) | payer MEDICARE ==
[~2018-03-23] VITALS: Ht 172.7 cm; Wt 72.8 kg
[~2018-03-23 14:42] MED LIST changes: +ACET325T14 PO; +ALBU18HF INH; +ASPI-650 PO; +CEFD300C37 PO; +HYDR-3240 PO; +HYDR12.53 PO; +LOSA50TA7 PO; +TIOT18CA INH
[2018-03-23] MEDS ORDERED: DIME50TA25 PO (15:10)
[2018-03-23] MEDS ORDERED: MECL12.52 PO (15:10)
[2018-03-23] MEDS ORDERED: OMEP-110 PO (15:10)
[2018-03-23] MEDS ORDERED: BUDE10.2 INH (15:10)
[2018-03-23] MEDS ORDERED: IBUP-1623 PO (15:10)
[2018-03-23] MEDS ORDERED: SIMV40TA3 PO (15:10)
[2018-03-23] MEDS ORDERED: LEVO100T PO (15:10)
[2018-03-23] MEDS ORDERED: NALD0.2T PO (15:10)
[2018-03-23] MEDS ORDERED: CALC-112 PO (15:10)
[2018-03-23] MEDS ORDERED: DOCU250C62 PO (15:10)
[2018-03-23] MEDS ORDERED: zinc PO (15:10)
[2018-03-23] MEDS ORDERED: HYDROcodone/APAP 5/325 TABLET PO ONE (15:30)
[2018-03-23] MEDS ORDERED: OMEPRAZOLE 20 MG CAPSULE.DR PO ONE (15:30)
[2018-03-23] MEDS ORDERED: ALUMINUM/MAG/SIMETHICONE 30 ML UDC PO PRN (15:30)
[2018-03-23] MEDS ORDERED: SODIUM CHLORIDE FLUSH 10ML SYR IVF ONE (15:30)
[2018-03-23 15:40] LABS: BASOPHILS # (AUTO) 0.08 x10^3/uL (0-0.1); BASOPHILS % (AUTO) 1 % (0-1); EOSINOPHILS # (AUTO) 0.24 x10^3/uL (0-0.4); EOSINOPHILS % (AUTO) 3 % (1-7); LYMPHOCYTES # (AUTO) 2.01 x10^3/uL (1-3.4); LYMPHOCYTES % (AUTO) 25 % (22-44); MD NO; MEAN CORPUSCULAR HEMOGLOBIN 30.3 pg (27.0-34.8); MEAN CORPUSCULAR HGB CONC 33.7 g/dL (32.4-35.8); MEAN CORPUSCULAR VOLUME 90.1 fL (80-100); MEAN PLATELET VOLUME 9.2 fL (7.4-10.4); MONOCYTES # (AUTO) 0.43 x10^3/uL (0.2-0.8); MONOCYTES % (AUTO) 5 % (2-9); NEUTROPHILS # (AUTO) 5.28 x10^3/uL (1.8-6.8); NEUTROPHILS % (AUTO) 66 % (42-75); PLATELET COUNT 210 x10^3/uL (130-400); RED BLOOD COUNT 4.51 x10^6/uL (3.82-5.3); RED CELL DISTRIBUTION WIDTH 13.4 % (9.6-15.2)
[2018-03-23] MEDS ORDERED: OMEPRAZOLE 20 MG CAPSULE.DR ONE (15:51)
[2018-03-23] MEDS ORDERED: ALUMINUM/MAG/SIMETHICONE 30 ML UDC ONE (15:51)
[2018-03-23 15:52] LABS: ALANINE AMINOTRANSFERASE 15 U/L (12-78); ALBUMIN 3.3 g/dL (3.4-5.0); ANION GAP 9 mmol/L (5-15); CALCIUM 8.9 mg/dL (8.5-10.1); CHLORIDE 109 mmol/L (98-107); CREATININE 1.02 mg/dL (0.55-1.02)
[2018-03-23] MEDS ORDERED: HYDROcodone/APAP 5/325 TABLET ONE (15:52)
[2018-03-23 15:58] LABS: ALKALINE PHOSPHATASE 95 U/L (45-117); BILIRUBIN,TOTAL 0.3 mg/dL (0.2-1.0); TOTAL PROTEIN 6.3 g/dL (6.4-8.2); TROPONIN I < 0.015 ng/mL (0.000-0.045)
[2018-03-23] MEDS ORDERED: ASPI-515 PO (17:19)
[2018-03-23] MEDS ORDERED: SODIUM CHLORIDE 0.9% 1,000 ML IV SCH (17:29)
[2018-03-23] MEDS ORDERED: ONDANSETRON 2MG/ML, 2ML IVPush PRN (17:30)
[2018-03-23] MEDS ORDERED: DOCUSATE 100 MG CAPSULE PO PRN (17:30)
[2018-03-23] MEDS ORDERED: HYDROcodone/APAP 5/325 TABLET PO PRN (17:30)
[2018-03-23] MEDS ORDERED: MECLIZINE 12.5 MG TABLET PO PRN (17:30)
[2018-03-23] MEDS ORDERED: ALBUTEROL SULFATE 2.5 MG/3 ML NPPB PRN (17:30)
[2018-03-23] MEDS ORDERED: DOCUSATE CALCIUM 240 MG CAPSULE PO PRN (17:30)
[2018-03-23] MEDS ORDERED: LABETALOL 5MG/ML, 20ML IVPush PRN (17:30)
[2018-03-23] MEDS ORDERED: ONDANSETRON ODT 4 MG PO PRN (17:30)
[2018-03-23] MEDS ORDERED: ENALAPRILAT 1.25 MG/ML, 2ML IVPush PRN (17:30)
[2018-03-23] MEDS ORDERED: BISACODYL 10 MG SUPP PR PRN (17:30)
[2018-03-23] MEDS ORDERED: POTASSIUM CHLORIDE 20 MEQ in SODIUM CHLORIDE 0.9% 250 ML IV ONE (18:00)
[2018-03-23 18:09] LABS: INTERNATIONAL NORMALIZED RATIO 1.06 (0.93-1.1)
[2018-03-23 18:15] LABS: TROPONIN I < 0.015 ng/mL (0.000-0.045)
[2018-03-23 19:52] VITALS: BP 157/89
[2018-03-23] MEDS: OMEPRAZOLE 20 MG CAPSULE.DR PO SCH (20:04)
[2018-03-23] MEDS: SIMVASTATIN 40 MG TABLET PO SCH (20:04)
[2018-03-23] MEDS: DULOXETINE 30 MG CAPSULE.DR PO SCH (20:04)
[2018-03-23] MEDS: MIRTAZAPINE 15 MG TABLET PO SCH (20:04)
[2018-03-23 21:56] LABS: TROPONIN I < 0.015 ng/mL (0.000-0.045)
[2018-03-24 00:48] VITALS: BP 126/84
[2018-03-24 00:57] LABS: TROPONIN I < 0.015 ng/mL (0.000-0.045)
[2018-03-24] MEDS: ALBUTEROL/IPRATROPIUM 2.5MG/0.5MG, 3 ML NPPB SCH ×3 (03:00→21:00)
[2018-03-24 03:57] LABS: ALANINE AMINOTRANSFERASE 14 U/L (12-78); ALBUMIN 3.1 g/dL (3.4-5.0); ANION GAP 4 mmol/L (5-15); CALCIUM 8.5 mg/dL (8.5-10.1); CHLORIDE 110 mmol/L (98-107)
[2018-03-24 03:58] LABS: BASOPHILS # (AUTO) 0.06 x10^3/uL (0-0.1); BASOPHILS % (AUTO) 1 % (0-1); EOSINOPHILS # (AUTO) 0.23 x10^3/uL (0-0.4); EOSINOPHILS % (AUTO) 3 % (1-7); LYMPHOCYTES # (AUTO) 1.95 x10^3/uL (1-3.4); LYMPHOCYTES % (AUTO) 24 % (22-44); MD NO; MEAN CORPUSCULAR HEMOGLOBIN 30.7 pg (27.0-34.8); MEAN CORPUSCULAR HGB CONC 33.9 g/dL (32.4-35.8); MEAN CORPUSCULAR VOLUME 90.6 fL (80-100); MEAN PLATELET VOLUME 9.4 fL (7.4-10.4); MONOCYTES # (AUTO) 0.44 x10^3/uL (0.2-0.8); MONOCYTES % (AUTO) 5 % (2-9); NEUTROPHILS # (AUTO) 5.42 x10^3/uL (1.8-6.8); NEUTROPHILS % (AUTO) 67 % (42-75); PLATELET COUNT 191 x10^3/uL (130-400); RED BLOOD COUNT 4.13 x10^6/uL (3.82-5.3); RED CELL DISTRIBUTION WIDTH 13.4 % (9.6-15.2)
[2018-03-24 04:00] LABS: ALKALINE PHOSPHATASE 92 U/L (45-117); BILIRUBIN,TOTAL 0.4 mg/dL (0.2-1.0); CHOL/HDL RATIO 4.8; CHOLESTEROL, TOTAL 182 mg/dL (140-239); HDL CHOL % 21 % (28-40); HDL CHOLESTEROL (DIRECT) 38 mg/dL (40-60); LDL CHOLESTEROL,CALCULATED 98 mg/dL (54-169); LDL/HDL RATIO 2.6 (0.5-3.0); TOTAL PROTEIN 5.9 g/dL (6.4-8.2); TRIGLYCERIDES 228 mg/dL (50-200); VLDL CHOLESTEROL 46 mg/dL (0-25)
[2018-03-24 04:03] LABS: TROPONIN I < 0.015 ng/mL (0.000-0.045)
[2018-03-24] MEDS: LEVOTHYROXINE 100 MCG TABLET PO SCH (06:12)
[2018-03-24 06:57] VITALS: BP 124/81
[2018-03-24] MEDS: DIMENHYDRINATE 50 MG PO SCH (09:00)
[2018-03-24] MEDS: DULOXETINE 30 MG CAPSULE.DR PO SCH ×2 (09:26→21:18)
[2018-03-24] MEDS: SENNA/DOCUSATE TABLET PO SCH (09:26)
[2018-03-24] MEDS: OMEPRAZOLE 20 MG CAPSULE.DR PO SCH ×2 (09:27→21:17)
[2018-03-24] MEDS: ACETAMINOPHEN 325 MG TABLET PO PRN ×2 (09:27→14:41)
[2018-03-24] MEDS: ASPIRIN 81 MG TABLET EC PO SCH (09:27)
[2018-03-24] MEDS: CALCIUM/VITAMIN D3 250-125 TABLET PO SCH (09:27)
[2018-03-24] MEDS: LOSARTAN 50MG TABLET PO SCH (09:27)
[2018-03-24] MEDS: ZINC SULFATE 220 MG CAPSULE PO SCH (13:13)
[2018-03-24] MEDS: FLUTICASONE/VILANTEROL 100-25MCG/INH INH SCH (13:13)
[2018-03-24 14:08] VITALS: BP 145/86
[2018-03-24 20:45] VITALS: BP 172/97
[2018-03-24] MEDS: MIRTAZAPINE 15 MG TABLET PO SCH (21:17)
[2018-03-24] MEDS: SIMVASTATIN 40 MG TABLET PO SCH (21:18)
[2018-03-24 21:24] VITALS: BP 155/85
[2018-03-25 02:07] VITALS: BP 144/79
[2018-03-25] MEDS: ALBUTEROL/IPRATROPIUM 2.5MG/0.5MG, 3 ML NPPB SCH ×2 (03:00→09:00)
[2018-03-25] MEDS: LEVOTHYROXINE 100 MCG TABLET PO SCH (05:24)
[2018-03-25 08:28] VITALS: BP 151/101
[2018-03-25] MEDS: LOSARTAN 50MG TABLET PO SCH (08:36)
[2018-03-25] MEDS: DULOXETINE 30 MG CAPSULE.DR PO SCH (08:37)
[2018-03-25] MEDS: ASPIRIN 81 MG TABLET EC PO SCH (08:37)
[2018-03-25] MEDS: ZINC SULFATE 220 MG CAPSULE PO SCH (08:37)
[2018-03-25] MEDS: CALCIUM/VITAMIN D3 250-125 TABLET PO SCH (08:38)
[2018-03-25] MEDS: OMEPRAZOLE 20 MG CAPSULE.DR PO SCH (08:38)
[2018-03-25] MEDS: FLUTICASONE/VILANTEROL 100-25MCG/INH INH SCH (08:39)
[2018-03-25] MEDS: SENNA/DOCUSATE TABLET PO SCH (08:41)
[2018-03-25] MEDS: DIMENHYDRINATE 50 MG PO SCH (09:00)
== END 2018-03-25 13:00 | disposition home or self-care (01) ==
LOC: ED 15:28 → INTOOBSV 17:07 → EDIP 17:07 → 5SO 18:12 → 3NE 03-24 23:08
PROVIDERS: ADMIT Family Medicine; ATTEND Family Medicine
DX: R07.89 Other chest pain (principal); E03.9 Hypothyroidism, unspecified; E11.65 Type 2 diabetes mellitus with hyperglycemia; E44.0 Moderate protein-calorie malnutrition; E78.00 Pure hypercholesterolemia, unspecified; E87.6 Hypokalemia; I10 Essential (primary) hypertension; I25.2 Old myocardial infarction; J44.9 Chronic obstructive pulmonary disease, unspecified; J96.10 Chronic respiratory failure, unspecified whether with hypoxia or hypercapnia; M79.7 Fibromyalgia; N17.9 Acute kidney failure, unspecified; Z86.711 Personal history of pulmonary embolism; Z86.73 Personal history of transient ischemic attack (TIA), and cerebral infarction without residual deficits; Z87.891 Personal history of nicotine dependence; Z90.710 Acquired absence of both cervix and uterus; Z99.81 Dependence on supplemental oxygen
CPT/HCPCS: 36415; 71045; 80053; 80061; 83690; 83735; 83880; 84100; 84484; 85025; 85379; 85610; 85730; 93005; 94640; 96365; 96366; 97161; 97166; 97535; 99285; G0378; G8978; G8979; G8980; J3480; J7030; J7050; J7620

== ENCOUNTER 2018-04-11 05:38 | Inpatient (IN) | payer MEDICARE ==
[~2018-04-11] VITALS: Ht 172.7 cm; Wt 81.0 kg
[~2018-04-11 05:38] MED LIST changes: +AMLO-150 PO; -AMLO5TAB7 PO; +ASPI-515 PO; +BUDE10.2 INH; +CALC-112 PO; +DIME50TA25 PO; +DOCU250C62 PO; +HYDR12.517 PO; -HYDR12.53 PO; +IBUP-1623 PO; +LEVO100T PO; +MECL12.52 PO; +METR-142 PO; -METR500T8 PO; +NALD0.2T PO; +OMEP-110 PO; +zinc PO
[2018-04-11] MEDS ORDERED: SODIUM CHLORIDE FLUSH 10ML SYR IVF ONE (06:00)
[2018-04-11] MEDS ORDERED: ONDANSETRON 2MG/ML, 2ML IVPush ONE (06:00)
[2018-04-11] MEDS ORDERED: ASPIRIN 81 MG TABLET CHEW PO ONE (06:00)
[2018-04-11] MEDS ORDERED: SODIUM CHLORIDE 0.9% 1,000ML IVBOLUS ONE (06:00)
[2018-04-11] MEDS ORDERED: ONDANSETRON 2MG/ML, 2ML ONE (06:04)
[2018-04-11] MEDS ORDERED: ASPIRIN 81 MG TABLET CHEW ONE (06:04)
[2018-04-11 06:31] LABS: MEAN CORPUSCULAR HEMOGLOBIN 30.5 pg (27.0-34.8); MEAN CORPUSCULAR VOLUME 89.8 fL (80-100); MEAN PLATELET VOLUME 8.6 fL (7.4-10.4); PLATELET COUNT 204 x10^3/uL (130-400); RED BLOOD COUNT 4.57 x10^6/uL (3.82-5.3); RED CELL DISTRIBUTION WIDTH 13.6 % (9.6-15.2)
[2018-04-11] MEDS ORDERED: HYDROmorphone 2 MG/ML, 1ML ONE ×2 (06:36→08:34)
[2018-04-11] MEDS: HYDROmorphone 2 MG/ML, 1ML IVPush PRN ×2 (06:40→08:39)
[2018-04-11 06:44] LABS: ALANINE AMINOTRANSFERASE 19 U/L (12-78); ALBUMIN 3.4 g/dL (3.4-5.0); ANION GAP 9 mmol/L (5-15); CALCIUM 8.8 mg/dL (8.5-10.1); CHLORIDE 104 mmol/L (98-107); CREATININE 0.95 mg/dL (0.55-1.02)
[2018-04-11 06:48] LABS: ALKALINE PHOSPHATASE 110 U/L (45-117); BILIRUBIN,TOTAL 0.6 mg/dL (0.2-1.0); TOTAL PROTEIN 6.9 g/dL (6.4-8.2); TROPONIN I < 0.015 ng/mL (0.000-0.045)
[2018-04-11 06:53] LABS: BASOPHILS # (AUTO) 0.01 x10^3/uL (0-0.1); BASOPHILS % (AUTO) 0 % (0-1); EOSINOPHILS # (AUTO) 0.04 x10^3/uL (0-0.4); EOSINOPHILS % (AUTO) 0 % (1-7); LYMPHOCYTES # (AUTO) 0.99 x10^3/uL (1-3.4); LYMPHOCYTES % (AUTO) 6 % (22-44); MD SCAN; MONOCYTES # (AUTO) 0.57 x10^3/uL (0.2-0.8); MONOCYTES % (AUTO) 3 % (2-9); NEUTROPHILS # (AUTO) 15.73 x10^3/uL (1.8-6.8); NEUTROPHILS % (AUTO) 91 % (42-75)
[2018-04-11 07:36] LABS: RAPID INFLUENZA A Negative (Negative); RAPID INFLUENZA B Negative (Negative)
[2018-04-11] MEDS ORDERED: DIPHENHYDRAMINE 50 MG/ML, 1ML ONE (07:37)
[2018-04-11] MEDS ORDERED: DIPHENHYDRAMINE 50 MG/ML, 1ML IVPush ONE (08:00)
[2018-04-11] MEDS ORDERED: OMNIPAQUE 350 MG/ML, 100ML BOTTLE ONE (08:09)
[2018-04-11] MEDS ORDERED: CEFTRIAXONE PMX 1GM/50ML 50 ML IVPB ONE (08:30)
[2018-04-11] MEDS ORDERED: CEFTRIAXONE PMX 1GM/50ML 50 ML ONE (08:34)
[2018-04-11 09:33] VITALS: BP 133/83
[2018-04-11] MEDS ORDERED: MECLIZINE 12.5 MG TABLET PO PRN (11:00)
[2018-04-11] MEDS ORDERED: DOCUSATE 100 MG CAPSULE PO PRN (11:00)
[2018-04-11] MEDS ORDERED: ONDANSETRON 2MG/ML, 2ML IVPush PRN (11:00)
[2018-04-11] MEDS ORDERED: ALBUTEROL SULFATE 2.5MG/0.5ML NPPB PRN (11:00)
[2018-04-11] MEDS ORDERED: BUDESONIDE 0.5 MG/2 ML INHA INH SCH ×2 (11:00→11:30)
[2018-04-11] MEDS ORDERED: ALBUTEROL/IPRATROPIUM 2.5MG/0.5MG, 3 ML NPPB SCH (11:00)
[2018-04-11] MEDS ORDERED: hydrALAzine 20 MG/ML, 1ML IVPush PRN (11:00)
[2018-04-11] MEDS: SODIUM CHLORIDE 0.9% 1,000 ML IV SCH ×2 (11:41→20:29)
[2018-04-11] MEDS: LOSARTAN 50MG TABLET PO SCH (11:42)
[2018-04-11] MEDS: CALCIUM/VITAMIN D3 250-125 TABLET PO SCH (11:48)
[2018-04-11] MEDS: LEVOFLOXACIN/PMX 750MG/150ML 150 ML IV SCH (11:48)
[2018-04-11] MEDS: ASPIRIN 81 MG TABLET EC PO SCH (11:48)
[2018-04-11] MEDS: HYDROcodone/APAP 5/325 TABLET PO PRN ×3 (13:20→22:46)
[2018-04-11 13:22] VITALS: BP 153/88
[2018-04-11] MEDS: BUDESONIDE 0.5 MG/2 ML INHA INH SCH ×2 (13:57→20:45)
[2018-04-11] MEDS: ALBUTEROL/IPRATROPIUM 2.5MG/0.5MG, 3 ML NPPB SCH ×2 (13:57→20:45)
[2018-04-11] MEDS: ACETAMINOPHEN 325 MG TABLET PO PRN (14:17)
[2018-04-11] MEDS: BENZONATATE 100 MG CAPSULE PO SCH ×2 (16:06→20:24)
[2018-04-11 16:31] LABS: MICROSCOPIC NOT IND
[2018-04-11 16:33] LABS: CULTURE INDICATED? NO
[2018-04-11] MEDS: OMEPRAZOLE 20 MG CAPSULE.DR PO SCH (20:24)
[2018-04-11] MEDS: SIMVASTATIN 40 MG TABLET PO SCH (20:24)
[2018-04-11] MEDS: DULOXETINE 30 MG CAPSULE.DR PO SCH (20:24)
[2018-04-11 20:30] VITALS: BP 135/89
[2018-04-11] MEDS ORDERED: BUDESONIDE 0.5 MG/2 ML INHA ONE (20:43)
[2018-04-11] MEDS ORDERED: MIRT30TA PO (21:40)
[2018-04-11] MEDS ORDERED: SODIUM CHLORIDE 0.9% 1,000 ML IV SCH (22:00)
[2018-04-11] MEDS ORDERED: MIRTAZAPINE 15 MG TABLET PO SCH (22:00)
[2018-04-11] MEDS: ONDANSETRON 2MG/ML, 2ML IVPush PRN (22:46)
[2018-04-12] MEDS: ALBUTEROL/IPRATROPIUM 2.5MG/0.5MG, 3 ML NPPB SCH ×4 (03:00→21:00)
[2018-04-12 03:06] VITALS: BP 159/92
[2018-04-12 04:28] LABS: MEAN CORPUSCULAR HEMOGLOBIN 29.8 pg (27.0-34.8); MEAN CORPUSCULAR HGB CONC 32.8 g/dL (32.4-35.8); MEAN CORPUSCULAR VOLUME 90.6 fL (80-100); MEAN PLATELET VOLUME 9.3 fL (7.4-10.4); PLATELET COUNT 154 x10^3/uL (130-400); RED BLOOD COUNT 3.72 x10^6/uL (3.82-5.3); RED CELL DISTRIBUTION WIDTH 13.6 % (9.6-15.2)
[2018-04-12 04:42] LABS: CHLORIDE 110 mmol/L (98-107)
[2018-04-12 04:43] LABS: MD YES
[2018-04-12 04:45] LABS: <PLATELET ESTIMATE> ADEQUATE; ANISOCYTOSIS 1+; LYMPHS% (MANUAL) 9 % (22-44); MONOS#(MANUAL) 0.31 x10^3/uL (0.3-2.7); MONOS% (MANUAL) 2 % (2-9); SEG#(MANUAL) 13.88 x10^3/uL (1.8-6.8); SEGS% (MANUAL) 89 % (42-75)
[2018-04-12 04:46] LABS: <PLT MORPHOLOGY> NORMAL PLT MORPH; ANION GAP 7 mmol/L (5-15); CALCIUM 8.3 mg/dL (8.5-10.1); CREATININE 0.88 mg/dL (0.55-1.02)
[2018-04-12] MEDS: LEVOTHYROXINE 100 MCG TABLET PO SCH (06:33)
[2018-04-12] MEDS: HYDROcodone/APAP 5/325 TABLET PO PRN ×3 (06:33→18:39)
[2018-04-12] MEDS: BUDESONIDE 0.5 MG/2 ML INHA INH SCH ×2 (06:42→21:00)
[2018-04-12 07:47] VITALS: BP 130/69
[2018-04-12] MEDS: LOSARTAN 50MG TABLET PO SCH (07:59)
[2018-04-12] MEDS: DULOXETINE 30 MG CAPSULE.DR PO SCH ×2 (07:59→21:10)
[2018-04-12] MEDS: OMEPRAZOLE 20 MG CAPSULE.DR PO SCH ×2 (07:59→21:10)
[2018-04-12] MEDS: CALCIUM/VITAMIN D3 250-125 TABLET PO SCH (07:59)
[2018-04-12] MEDS: ASPIRIN 81 MG TABLET EC PO SCH (07:59)
[2018-04-12] MEDS: BENZONATATE 100 MG CAPSULE PO SCH ×3 (07:59→21:10)
[2018-04-12] MEDS: LEVOFLOXACIN/PMX 750MG/150ML 150 ML IV SCH (10:44)
[2018-04-12 12:35] VITALS: BP 128/80
[2018-04-12] MEDS: ONDANSETRON 2MG/ML, 2ML IVPush PRN (12:35)
[2018-04-12] MEDS ORDERED: LEVO750T26 PO (15:33)
[2018-04-12] MEDS ORDERED: BENZ-17 PO (15:33)
[2018-04-12 18:36] VITALS: BP 142/82
[2018-04-12] MEDS: MIRTAZAPINE 30 MG TAB.RAPDIS PO SCH (21:10)
[2018-04-12] MEDS: SIMVASTATIN 40 MG TABLET PO SCH (21:11)
[2018-04-12] MEDS: DOCUSATE 100 MG CAPSULE PO PRN (21:15)
[2018-04-13 00:45] VITALS: BP 148/90
[2018-04-13] MEDS: HYDROcodone/APAP 5/325 TABLET PO PRN ×4 (00:47→20:51)
[2018-04-13] MEDS: ALBUTEROL/IPRATROPIUM 2.5MG/0.5MG, 3 ML NPPB SCH ×4 (02:48→19:50)
[2018-04-13 05:28] LABS: MEAN CORPUSCULAR HEMOGLOBIN 30.7 pg (27.0-34.8); MEAN CORPUSCULAR HGB CONC 33.5 g/dL (32.4-35.8); MEAN CORPUSCULAR VOLUME 91.6 fL (80-100); MEAN PLATELET VOLUME 9.6 fL (7.4-10.4); PLATELET COUNT 165 x10^3/uL (130-400); RED BLOOD COUNT 3.87 x10^6/uL (3.82-5.3); RED CELL DISTRIBUTION WIDTH 14.1 % (9.6-15.2)
[2018-04-13 05:47] LABS: BASOPHILS # (AUTO) 0.04 x10^3/uL (0-0.1); BASOPHILS % (AUTO) 0 % (0-1); EOSINOPHILS # (AUTO) 0.15 x10^3/uL (0-0.4); EOSINOPHILS % (AUTO) 1 % (1-7); LYMPHOCYTES # (AUTO) 0.81 x10^3/uL (1-3.4); LYMPHOCYTES % (AUTO) 7 % (22-44); MD SCAN; MONOCYTES # (AUTO) 0.65 x10^3/uL (0.2-0.8); MONOCYTES % (AUTO) 6 % (2-9); NEUTROPHILS # (AUTO) 9.33 x10^3/uL (1.8-6.8); NEUTROPHILS % (AUTO) 85 % (42-75)
[2018-04-13] MEDS: LEVOTHYROXINE 100 MCG TABLET PO SCH (06:00)
[2018-04-13 07:10] VITALS: BP 144/90
[2018-04-13] MEDS: DULOXETINE 30 MG CAPSULE.DR PO SCH ×2 (07:53→20:48)
[2018-04-13] MEDS: CALCIUM/VITAMIN D3 250-125 TABLET PO SCH (07:53)
[2018-04-13] MEDS: BENZONATATE 100 MG CAPSULE PO SCH ×3 (07:53→20:48)
[2018-04-13] MEDS: ASPIRIN 81 MG TABLET EC PO SCH (07:53)
[2018-04-13] MEDS: LOSARTAN 50MG TABLET PO SCH (07:53)
[2018-04-13] MEDS: OMEPRAZOLE 20 MG CAPSULE.DR PO SCH ×2 (07:53→20:48)
[2018-04-13] MEDS: DOCUSATE 100 MG CAPSULE PO PRN (08:01)
[2018-04-13] MEDS: BUDESONIDE 0.5 MG/2 ML INHA INH SCH ×2 (09:00→19:50)
[2018-04-13] MEDS ORDERED: BENZONATATE 100 MG CAPSULE PO SCH (09:00)
[2018-04-13] MEDS: LEVOFLOXACIN/PMX 750MG/150ML 150 ML IV SCH (12:18)
[2018-04-13 12:27] VITALS: BP 131/83
[2018-04-13 20:00] VITALS: BP 157/97
[2018-04-13] MEDS: MIRTAZAPINE 30 MG TAB.RAPDIS PO SCH (20:48)
[2018-04-13] MEDS: SIMVASTATIN 40 MG TABLET PO SCH (20:48)
[2018-04-14 02:00] VITALS: BP 149/88
[2018-04-14] MEDS: ALBUTEROL/IPRATROPIUM 2.5MG/0.5MG, 3 ML NPPB SCH ×2 (03:00→09:28)
[2018-04-14 05:14] LABS: BASOPHILS # (AUTO) 0.04 x10^3/uL (0-0.1); BASOPHILS % (AUTO) 1 % (0-1); EOSINOPHILS # (AUTO) 0.34 x10^3/uL (0-0.4); EOSINOPHILS % (AUTO) 5 % (1-7); LYMPHOCYTES # (AUTO) 1.05 x10^3/uL (1-3.4); LYMPHOCYTES % (AUTO) 14 % (22-44); MD NO; MEAN CORPUSCULAR HEMOGLOBIN 30.6 pg (27.0-34.8); MEAN CORPUSCULAR HGB CONC 33.5 g/dL (32.4-35.8); MEAN CORPUSCULAR VOLUME 91.5 fL (80-100); MEAN PLATELET VOLUME 9.1 fL (7.4-10.4); MONOCYTES # (AUTO) 0.48 x10^3/uL (0.2-0.8); MONOCYTES % (AUTO) 6 % (2-9); NEUTROPHILS # (AUTO) 5.58 x10^3/uL (1.8-6.8); NEUTROPHILS % (AUTO) 75 % (42-75); PLATELET COUNT 182 x10^3/uL (130-400); RED BLOOD COUNT 3.69 x10^6/uL (3.82-5.3); RED CELL DISTRIBUTION WIDTH 13.8 % (9.6-15.2)
[2018-04-14] MEDS: LEVOTHYROXINE 100 MCG TABLET PO SCH (05:23)
[2018-04-14] MEDS: HYDROcodone/APAP 5/325 TABLET PO PRN ×2 (05:27→12:28)
[2018-04-14 07:46] VITALS: BP 110/59
[2018-04-14] MEDS: LOSARTAN 50MG TABLET PO SCH (08:47)
[2018-04-14] MEDS: CALCIUM/VITAMIN D3 250-125 TABLET PO SCH (08:48)
[2018-04-14] MEDS: BENZONATATE 100 MG CAPSULE PO SCH ×2 (08:48→15:58)
[2018-04-14] MEDS: OMEPRAZOLE 20 MG CAPSULE.DR PO SCH (08:48)
[2018-04-14] MEDS: DULOXETINE 30 MG CAPSULE.DR PO SCH (08:48)
[2018-04-14] MEDS: ASPIRIN 81 MG TABLET EC PO SCH (08:48)
[2018-04-14] MEDS: BUDESONIDE 0.5 MG/2 ML INHA INH SCH (09:28)
[2018-04-14] MEDS: LEVOFLOXACIN/PMX 750MG/150ML 150 ML IV SCH (10:49)
[2018-04-14 13:15] VITALS: BP 131/78
[2018-04-14] MEDS: ACETAMINOPHEN 325 MG TABLET PO PRN (16:02)
[2018-04-14] MEDS ORDERED: ALBUTEROL/IPRATROPIUM 2.5MG/0.5MG, 3 ML NPPB SCH (21:00)
== END 2018-04-14 17:53 | disposition home health service (06) | DRG 871 ==
LOC: ED 08:22 → EDIP 08:23 → ED 08:26 → ICU 10:08 → 3NE 04-13 14:41
PROVIDERS: ADMIT Internal Medicine; ATTEND Internal Medicine
DX: A41.9 Sepsis, unspecified organism (principal); J15.9 Unspecified bacterial pneumonia; J44.0 Chronic obstructive pulmonary disease with (acute) lower respiratory infection; J96.11 Chronic respiratory failure with hypoxia; E03.9 Hypothyroidism, unspecified; E11.9 Type 2 diabetes mellitus without complications; E78.00 Pure hypercholesterolemia, unspecified; I10 Essential (primary) hypertension; I25.10 Atherosclerotic heart disease of native coronary artery without angina pectoris; I25.2 Old myocardial infarction; M79.7 Fibromyalgia; M81.0 Age-related osteoporosis without current pathological fracture; Z82.3 Family history of stroke; Z86.73 Personal history of transient ischemic attack (TIA), and cerebral infarction without residual deficits; Z87.891 Personal history of nicotine dependence; Z90.710 Acquired absence of both cervix and uterus; Z90.49 Acquired absence of other specified parts of digestive tract; Z88.3 Allergy status to other anti-infective agents; Z88.0 Allergy status to penicillin; Z88.2 Allergy status to sulfonamides; Z88.8 Allergy status to other drugs, medicaments and biological substances
CPT/HCPCS: 36415; 71045; 71275; 80048; 80053; 81003; 83605; 83690; 83735; 84484; 85025; 87040; 87400; 93005; 94640; 96361; 96365; 96375; 96376; G0378; J0696; J1170; J1956; J2405; J7620; J7626; Q9967; J1200; J7030; J7512

== ENCOUNTER 2018-06-05 07:50 | Inpatient (IN) | payer MEDICARE ==
[~2018-06-05] VITALS: Ht 172.7 cm; Wt 76.1 kg
[~2018-06-05 07:50] MED LIST changes: +BENZ-17 PO; +LOSA50TA14 PO; -LOSA50TA7 PO; -METR-142 PO; +METR-90 PO
--- NOTE | 2018-06-05 08:07 | NUR ---
PT RESTING ON GURNEY. CP MONITORS IN PLACE, CALL LIGHT IN REACH. ALL CONCERNS ADRESSED. ERPA TO BEDSIDE FOR EXAM, AWAITING ORDERS.
[2018-06-05] MEDS ORDERED: ALBUTEROL/IPRATROPIUM 2.5MG/0.5MG, 3 ML NPPB SCH (08:30)
[2018-06-05] MEDS ORDERED: ALBUTEROL/IPRATROPIUM 2.5MG/0.5MG, 3 ML ONE ×3 (08:42→11:53)
[2018-06-05 08:48] LABS: MEAN CORPUSCULAR HEMOGLOBIN 30.2 pg (27.0-34.8); MEAN CORPUSCULAR HGB CONC 32.9 g/dL (32.4-35.8); MEAN CORPUSCULAR VOLUME 91.9 fL (80-100); MEAN PLATELET VOLUME 8.9 fL (7.4-10.4); PLATELET COUNT 196 x10^3/uL (130-400); RED BLOOD COUNT 4.16 x10^6/uL (3.82-5.3); RED CELL DISTRIBUTION WIDTH 14.7 % (9.6-15.2)
--- NOTE | 2018-06-05 08:51 | NUR ---
RT AT BEDSIDE.
[2018-06-05 08:54] LABS: ALBUMIN 3.2 g/dL (3.4-5.0); ANION GAP 7 mmol/L (5-15); CALCIUM 9.6 mg/dL (8.5-10.1); CHLORIDE 106 mmol/L (98-107)
[2018-06-05 08:59] LABS: CREATININE 0.89 mg/dL (0.55-1.02); TROPONIN I < 0.015 ng/mL (0.000-0.045)
[2018-06-05] MEDS ORDERED: LEVOFLOXACIN/PMX 750MG/150ML 150 ML IVPB ONE (09:00)
[2018-06-05 09:04] LABS: BASOPHILS # (AUTO) 0.04 x10^3/uL (0-0.1); BASOPHILS % (AUTO) 0 % (0-1); EOSINOPHILS # (AUTO) 0.19 x10^3/uL (0-0.4); EOSINOPHILS % (AUTO) 2 % (1-7); LYMPHOCYTES # (AUTO) 0.97 x10^3/uL (1-3.4); LYMPHOCYTES % (AUTO) 9 % (22-44); MD SCAN; MONOCYTES # (AUTO) 1.07 x10^3/uL (0.2-0.8); MONOCYTES % (AUTO) 10 % (2-9); NEUTROPHILS # (AUTO) 8.35 x10^3/uL (1.8-6.8); NEUTROPHILS % (AUTO) 79 % (42-75)
[2018-06-05] MEDS ORDERED: KETOROLAC 30 MG/1 ML ONE (09:05)
[2018-06-05] MEDS ORDERED: LEVOFLOXACIN/PMX 750MG/150ML 150 ML ONE (09:06)
[2018-06-05] MEDS ORDERED: KETOROLAC 30 MG/1 ML IVPush ONE ×2 (09:30)
--- NOTE | 2018-06-05 09:30 | NUR ---
IV ABX INFUSING PER ORDER. BC X2 DRAWN PRIOR.
[2018-06-05] MEDS ORDERED: DOCUSATE CALCIUM 240 MG CAPSULE PO PRN (10:00)
[2018-06-05] MEDS ORDERED: ONDANSETRON ODT 4 MG PO PRN (10:00)
[2018-06-05] MEDS ORDERED: GUAIFENESIN/DM 200-20MG, 10ML UDC PO PRN (10:00)
[2018-06-05] MEDS ORDERED: DOCUSATE 100 MG CAPSULE PO PRN (10:00)
[2018-06-05] MEDS ORDERED: LABETALOL 5MG/ML, 20ML IVPush PRN (10:00)
[2018-06-05] MEDS ORDERED: MECLIZINE 12.5 MG TABLET PO PRN (10:00)
[2018-06-05] MEDS ORDERED: hydrALAzine 20 MG/ML, 1ML IVPush PRN (10:00)
[2018-06-05 10:07] LABS: HCT (SEDRATE) 38.3 % (34.6-47.8)
--- NOTE | 2018-06-05 10:54 | NUR ---
REPORT TO CALLIE GOODMAN.
[2018-06-05] MEDS: ALBUTEROL/IPRATROPIUM 2.5MG/0.5MG, 3 ML NPPB SCH ×4 (12:10→21:00)
[2018-06-05] MEDS: HYDROcodone/APAP 5/325 TABLET PO PRN ×2 (12:26→20:55)
[2018-06-05] MEDS: OMEPRAZOLE 20 MG CAPSULE.DR PO SCH ×2 (12:26→17:04)
[2018-06-05] MEDS ORDERED: BUDESONIDE 0.5 MG/2 ML INHA HHN SCH (13:00)
[2018-06-05] MEDS ORDERED: ALBUTEROL SULFATE 2.5 MG/3 ML HHN PRN (13:00)
[2018-06-05 14:20] LABS: RAPID INFLUENZA A Negative (Negative); RAPID INFLUENZA B Negative (Negative)
[2018-06-05 14:30] VITALS: BP 166/79
[2018-06-05] MEDS: BENZONATATE 100 MG CAPSULE PO PRN (17:02)
[2018-06-05] MEDS: ACETAMINOPHEN 325 MG TABLET PO PRN (17:02)
[2018-06-05 20:00] VITALS: BP 145/81
[2018-06-05] MEDS: DOXYCYCLINE 100MG TABLET PO SCH (20:55)
[2018-06-05] MEDS: DULOXETINE 30 MG CAPSULE.DR PO SCH (20:56)
[2018-06-05] MEDS ORDERED: SIMVASTATIN 40 MG TABLET PO SCH (21:00)
[2018-06-05] MEDS: BUDESONIDE 0.5 MG/2 ML INHA HHN SCH (21:00)
[2018-06-05] MEDS ORDERED: MIRTAZAPINE 30 MG TAB.RAPDIS PO SCH (21:00)
[2018-06-06] MEDS: HYDROcodone/APAP 5/325 TABLET PO PRN ×2 (04:25→11:05)
[2018-06-06] MEDS: BENZONATATE 100 MG CAPSULE PO PRN (04:25)
[2018-06-06 04:37] VITALS: BP 130/78
[2018-06-06 04:43] LABS: BASOPHILS # (AUTO) 0.03 x10^3/uL (0-0.1); BASOPHILS % (AUTO) 0 % (0-1); EOSINOPHILS # (AUTO) 0.14 x10^3/uL (0-0.4); EOSINOPHILS % (AUTO) 2 % (1-7); LYMPHOCYTES # (AUTO) 0.88 x10^3/uL (1-3.4); LYMPHOCYTES % (AUTO) 9 % (22-44); MD NO; MEAN CORPUSCULAR HEMOGLOBIN 30.6 pg (27.0-34.8); MEAN CORPUSCULAR HGB CONC 33.5 g/dL (32.4-35.8); MEAN CORPUSCULAR VOLUME 91.4 fL (80-100); MEAN PLATELET VOLUME 8.6 fL (7.4-10.4); MONOCYTES # (AUTO) 0.81 x10^3/uL (0.2-0.8); MONOCYTES % (AUTO) 9 % (2-9); NEUTROPHILS # (AUTO) 7.56 x10^3/uL (1.8-6.8); NEUTROPHILS % (AUTO) 80 % (42-75); PLATELET COUNT 193 x10^3/uL (130-400); RED BLOOD COUNT 3.79 x10^6/uL (3.82-5.3); RED CELL DISTRIBUTION WIDTH 14.4 % (9.6-15.2)
[2018-06-06 04:56] LABS: ANION GAP 5 mmol/L (5-15); CALCIUM 8.6 mg/dL (8.5-10.1); CHLORIDE 105 mmol/L (98-107); CREATININE 0.87 mg/dL (0.55-1.02)
[2018-06-06] MEDS ORDERED: LEVOTHYROXINE 100 MCG TABLET PO SCH (06:00)
[2018-06-06] MEDS: ACETAMINOPHEN 325 MG TABLET PO PRN ×2 (06:25→08:32)
[2018-06-06] MEDS: BUDESONIDE 0.5 MG/2 ML INHA HHN SCH (08:00)
[2018-06-06 08:11] VITALS: BP 126/73
[2018-06-06] MEDS: OMEPRAZOLE 20 MG CAPSULE.DR PO SCH (08:19)
[2018-06-06] MEDS: DOXYCYCLINE 100MG TABLET PO SCH (08:31)
[2018-06-06] MEDS: DULOXETINE 30 MG CAPSULE.DR PO SCH (08:32)
[2018-06-06] MEDS ORDERED: TEMPLATE NON-FORMULARY MED. (Tiotropium Bromide** (Spiriva**) 18 MCG) INH SCH (09:00)
[2018-06-06] MEDS ORDERED: CALCIUM/VITAMIN D3 250-125 TABLET PO SCH (09:00)
[2018-06-06] MEDS ORDERED: ZINC SULFATE 220 MG TAB PO SCH (09:00)
[2018-06-06] MEDS ORDERED: ASPIRIN 81 MG TABLET EC PO SCH (09:00)
[2018-06-06] MEDS ORDERED: LOSARTAN 50MG TABLET PO SCH (09:00)
[2018-06-06] MEDS ORDERED: TEMPLATE NON-FORMULARY MED. (Budesonide/Formoterol Fumarate (Symbicort 160-4.5 Mcg Inhaler INH SCH (09:00)
[2018-06-06] MEDS ORDERED: DOXY100T PO ×2 (10:30→10:39)
[2018-06-06 14:31] VITALS: BP 131/79
== END 2018-06-06 14:55 | disposition home health service (06) | DRG 178 ==
LOC: ED 08:51 → EDIP 09:01 → 3NW 11:16
PROVIDERS: ADMIT Internal Medicine; ATTEND Internal Medicine
DX: J15.6 Pneumonia due to other Gram-negative bacteria (principal); J44.0 Chronic obstructive pulmonary disease with (acute) lower respiratory infection; J96.11 Chronic respiratory failure with hypoxia; J44.1 Chronic obstructive pulmonary disease with (acute) exacerbation; E03.9 Hypothyroidism, unspecified; E11.9 Type 2 diabetes mellitus without complications; E78.00 Pure hypercholesterolemia, unspecified; I10 Essential (primary) hypertension; I25.2 Old myocardial infarction; M79.7 Fibromyalgia; M81.0 Age-related osteoporosis without current pathological fracture; Z86.73 Personal history of transient ischemic attack (TIA), and cerebral infarction without residual deficits; F32.9 Major depressive disorder, single episode, unspecified; G89.29 Other chronic pain; M19.90 Unspecified osteoarthritis, unspecified site
CPT/HCPCS: 36415; 71046; 71250; 80048; 82040; 83880; 84145; 84484; 85025; 85651; 86140; 87040; 87081; 87400; 93005; 94640; 96365; 96375; 99283; 99285; G0378; J1885; J1956; J7620; J7626; Q0162; J0360

== ENCOUNTER 2018-10-16 07:51 | Inpatient (IN) | payer MEDICARE ==
[~2018-10-16] VITALS: Ht 170.2 cm; Wt 70.5 kg
[~2018-10-16 07:51] MED LIST changes: -DIME50TA25 PO; +DIME50TA57 PO; -FLUT16SP NAS; +FLUT16SP24 NAS; +MIRT45TA57 PO; -MIRT45TA6 PO; +ONDA4VIA60 PO; -ONDA4VIA8 PO
[2018-10-16 08:26] LABS: BASOPHILS # (AUTO) 0.08 x10^3/uL (0-0.1); BASOPHILS % (AUTO) 1 % (0-1); EOSINOPHILS # (AUTO) 0.66 x10^3/uL (0-0.4); EOSINOPHILS % (AUTO) 7 % (1-7); LYMPHOCYTES # (AUTO) 2.11 x10^3/uL (1-3.4); LYMPHOCYTES % (AUTO) 23 % (22-44); MD NO; MEAN CORPUSCULAR HEMOGLOBIN 29.5 pg (27.0-34.8); MEAN CORPUSCULAR HGB CONC 32.9 g/dL (32.4-35.8); MEAN CORPUSCULAR VOLUME 89.7 fL (80-100); MEAN PLATELET VOLUME 8.8 fL (7.4-10.4); MONOCYTES # (AUTO) 0.57 x10^3/uL (0.2-0.8); MONOCYTES % (AUTO) 6 % (2-9); NEUTROPHILS % (AUTO) 63 % (42-75); PLATELET COUNT 228 x10^3/uL (130-400); RED BLOOD COUNT 4.56 x10^6/uL (3.82-5.3)
[2018-10-16] MEDS ORDERED: SODIUM CHLORIDE 0.9% 1,000ML IVBOLUS ONE (08:30)
[2018-10-16] MEDS ORDERED: SODIUM CHLORIDE FLUSH 10ML SYR IVF ONE (08:30)
[2018-10-16 08:48] LABS: ALANINE AMINOTRANSFERASE 14 U/L (12-78); ALBUMIN 3.3 g/dL (3.4-5.0); ANION GAP 4 mmol/L (5-15); CALCIUM 8.5 mg/dL (8.5-10.1); CHLORIDE 113 mmol/L (98-107); CREATININE 1.26 mg/dL (0.55-1.02)
[2018-10-16 08:50] LABS: ALKALINE PHOSPHATASE 96 U/L (45-117); BILIRUBIN,TOTAL 0.3 mg/dL (0.2-1.0); TOTAL PROTEIN 6.4 g/dL (6.4-8.2)
--- NOTE | 2018-10-16 08:52 | NUR ---
received report from chantelle Thompson upright on gurpatrick awake & calm, texting on phone/watching TV, responds approp to staff, NAD, comfort measures provided, call light within reach.
[2018-10-16] MEDS ORDERED: DIPHENHYDRAMINE 50 MG/ML, 1ML IVPush ONE (09:30)
[2018-10-16] MEDS ORDERED: DIPHENHYDRAMINE 50 MG/ML, 1ML ONE (09:30)
--- NOTE | 2018-10-16 09:44 | NUR ---
pt to CT
[2018-10-16] MEDS ORDERED: ONDANSETRON 2MG/ML, 2ML ONE (09:55)
[2018-10-16] MEDS ORDERED: MORPHINE SULFATE 4 MG/ML, 1ML ONE ×2 (09:55→11:31)
[2018-10-16] MEDS ORDERED: ONDANSETRON 2MG/ML, 2ML IVPush ONE (10:00)
[2018-10-16] MEDS: MORPHINE SULFATE 4 MG/ML, 1ML IVPush PRN ×4 (10:04→21:20)
--- NOTE | 2018-10-16 10:04 | NUR ---
pt returned from CT, remains upright on gurney awake & calm, texting on phone/watching TV, responds approp to staff, NAD, comfort measures provided, call light within reach.
[2018-10-16 10:23] LABS: MICROSCOPIC AUTO
[2018-10-16 10:30] LABS: CULTURE INDICATED? YES
[2018-10-16] MEDS ORDERED: CEFTRIAXONE PMX 1GM/50ML 50 ML IVPB ONE (11:00)
[2018-10-16] MEDS ORDERED: METRONIDAZOLE PMX 500MG/100ML 100 ML IVPB ONE (11:00)
--- NOTE | 2018-10-16 11:05 | NUR ---
pt upright on gurney awake & calm, watching TV, responds approp to staff, NAD, comfort measures provided, call light within reach.
[2018-10-16] MEDS ORDERED: METRONIDAZOLE PMX 500MG/100ML 100 ML ONE (11:09)
[2018-10-16] MEDS ORDERED: CEFTRIAXONE PMX 1GM/50ML 50 ML ONE (11:09)
[2018-10-16] MEDS ORDERED: OMNIPAQUE 350 MG/ML, 100ML BOTTLE ONE (11:19)
--- NOTE | 2018-10-16 12:08 | NUR ---
Pt to be admitted to [facility], room 450. Report called to Dana. pt upright on gurney awake & more comfortable, responds approp to staff, NAD, comfort measures provided, call light within reach.
[2018-10-16 12:52] VITALS: BP 156/99
[2018-10-16] MEDS: LACTOBACILLUS CHEW TABLET PO SCH ×2 (16:51→21:20)
[2018-10-16] MEDS: LACTATED RINGERS 1,000 ML IV SCH (16:52)
[2018-10-16] MEDS ORDERED: MECLIZINE 12.5 MG TABLET PO PRN (17:00)
[2018-10-16] MEDS ORDERED: CEFTRIAXONE PMX 1GM/50ML 50 ML IV SCH (17:00)
[2018-10-16] MEDS ORDERED: LABETALOL 5 MG/ML SYRINGE IVPush PRN (17:00)
[2018-10-16] MEDS ORDERED: ACETAMINOPHEN 325 MG TABLET PO PRN (17:00)
[2018-10-16] MEDS ORDERED: hydrALAzine 20 MG/ML, 1ML IVPush PRN (17:00)
[2018-10-16] MEDS ORDERED: TEMPLATE NON-FORMULARY MED. (Albuterol Sulfate (Proair Hfa) 1 PUFF) INH PRN (17:00)
[2018-10-16 19:41] VITALS: BP 151/79
[2018-10-16] MEDS: BUDESONIDE 0.5 MG/2 ML INHA NPPB SCH (20:14)
[2018-10-16] MEDS: ALBUTEROL/IPRATROPIUM 2.5MG/0.5MG, 3 ML NPPB SCH (20:14)
[2018-10-16] MEDS: MIRTAZAPINE 30 MG TABLET PO SCH (21:20)
[2018-10-16] MEDS: OMEPRAZOLE 20 MG CAPSULE.DR PO SCH (21:20)
[2018-10-16] MEDS: SIMVASTATIN 40 MG TABLET PO SCH (21:20)
[2018-10-16] MEDS: METRONIDAZOLE PMX 500MG/100ML 100 ML IV SCH (21:20)
[2018-10-16] MEDS: DULOXETINE 30 MG CAPSULE.DR PO SCH (21:20)
[2018-10-17] MEDS: HYDROcodone/APAP 5/325 TABLET PO PRN ×4 (00:56→21:06)
[2018-10-17 01:41] VITALS: BP 126/66
[2018-10-17] MEDS: ALBUTEROL/IPRATROPIUM 2.5MG/0.5MG, 3 ML NPPB SCH ×4 (03:00→21:00)
[2018-10-17] MEDS: MORPHINE SULFATE 4 MG/ML, 1ML IVPush PRN (04:20)
[2018-10-17] MEDS: LACTATED RINGERS 1,000 ML IV SCH (04:57)
[2018-10-17] MEDS: LACTOBACILLUS CHEW TABLET PO SCH ×4 (05:11→21:07)
[2018-10-17] MEDS: LEVOTHYROXINE 100 MCG TABLET PO SCH (05:11)
[2018-10-17 05:30] LABS: BASOPHILS # (AUTO) 0.07 x10^3/uL (0-0.1); BASOPHILS % (AUTO) 1 % (0-1); EOSINOPHILS # (AUTO) 0.62 x10^3/uL (0-0.4); EOSINOPHILS % (AUTO) 8 % (1-7); LYMPHOCYTES # (AUTO) 1.14 x10^3/uL (1-3.4); LYMPHOCYTES % (AUTO) 14 % (22-44); MD NO; MEAN CORPUSCULAR HEMOGLOBIN 28.9 pg (27.0-34.8); MEAN CORPUSCULAR HGB CONC 32.1 g/dL (32.4-35.8); MEAN CORPUSCULAR VOLUME 90.2 fL (80-100); MEAN PLATELET VOLUME 8.9 fL (7.4-10.4); MONOCYTES # (AUTO) 0.59 x10^3/uL (0.2-0.8); MONOCYTES % (AUTO) 7 % (2-9); NEUTROPHILS # (AUTO) 5.69 x10^3/uL (1.8-6.8); NEUTROPHILS % (AUTO) 70 % (42-75); PLATELET COUNT 193 x10^3/uL (130-400); RED BLOOD COUNT 3.96 x10^6/uL (3.82-5.3); RED CELL DISTRIBUTION WIDTH 13.9 % (9.6-15.2)
[2018-10-17] MEDS: METRONIDAZOLE PMX 500MG/100ML 100 ML IV SCH ×3 (05:38→22:29)
[2018-10-17 05:40] LABS: ANION GAP 3 mmol/L (5-15); CALCIUM 8.3 mg/dL (8.5-10.1); CHLORIDE 110 mmol/L (98-107)
[2018-10-17 05:45] LABS: ALANINE AMINOTRANSFERASE 12 U/L (12-78); ALKALINE PHOSPHATASE 86 U/L (45-117); BILIRUBIN,TOTAL 0.7 mg/dL (0.2-1.0); CREATININE 1.07 mg/dL (0.55-1.02); TOTAL PROTEIN 5.7 g/dL (6.4-8.2)
[2018-10-17 09:03] VITALS: BP 130/69
[2018-10-17] MEDS: ASPIRIN 81 MG TABLET EC PO SCH (09:09)
[2018-10-17] MEDS: CALCIUM/VITAMIN D3 250-125 TABLET PO SCH (09:09)
[2018-10-17] MEDS: LOSARTAN 50MG TABLET PO SCH (09:09)
[2018-10-17] MEDS: OMEPRAZOLE 20 MG CAPSULE.DR PO SCH ×2 (09:09→21:07)
[2018-10-17] MEDS: TEMPLATE NON-FORMULARY MED. (Budesonide/Formoterol Fumarate (Symbicort 160-4.5 Mcg Inhaler INH SCH (09:10)
[2018-10-17] MEDS: TEMPLATE NON-FORMULARY MED. (Tiotropium Bromide** (Spiriva**) 18 MCG) INH SCH (09:11)
[2018-10-17] MEDS: DULOXETINE 30 MG CAPSULE.DR PO SCH ×2 (09:14→21:07)
[2018-10-17] MEDS: BUDESONIDE 0.5 MG/2 ML INHA NPPB SCH ×2 (09:56→21:00)
[2018-10-17] MEDS: CEFTRIAXONE PMX 1GM/50ML 50 ML IV SCH (11:38)
[2018-10-17 12:19] VITALS: BP 160/90
[2018-10-17 18:35] VITALS: BP 150/78
[2018-10-17] MEDS: MIRTAZAPINE 30 MG TABLET PO SCH (21:07)
[2018-10-17] MEDS: SIMVASTATIN 40 MG TABLET PO SCH (21:08)
[2018-10-18] MEDS: BUTALB/APAP/CAFFEINE 50MG/325MG/40MG PO PRN ×2 (01:06→09:26)
[2018-10-18 01:50] VITALS: BP 153/91
[2018-10-18] MEDS: ALBUTEROL/IPRATROPIUM 2.5MG/0.5MG, 3 ML NPPB SCH ×4 (03:00→20:00)
[2018-10-18 05:45] LABS: MEAN CORPUSCULAR HEMOGLOBIN 29.5 pg (27.0-34.8); MEAN CORPUSCULAR HGB CONC 32.4 g/dL (32.4-35.8); MEAN CORPUSCULAR VOLUME 91.1 fL (80-100); MEAN PLATELET VOLUME 9.3 fL (7.4-10.4); PLATELET COUNT 192 x10^3/uL (130-400); RED BLOOD COUNT 4.11 x10^6/uL (3.82-5.3); RED CELL DISTRIBUTION WIDTH 13.9 % (9.6-15.2)
[2018-10-18 05:57] LABS: CHLORIDE 109 mmol/L (98-107)
[2018-10-18 06:02] LABS: ANION GAP 3 mmol/L (5-15); CALCIUM 8.5 mg/dL (8.5-10.1); CREATININE 0.87 mg/dL (0.55-1.02)
[2018-10-18 06:04] LABS: BASOPHILS # (AUTO) 0.04 x10^3/uL (0-0.1); BASOPHILS % (AUTO) 0 % (0-1); EOSINOPHILS # (AUTO) 0.12 x10^3/uL (0-0.4); EOSINOPHILS % (AUTO) 1 % (1-7); LYMPHOCYTES # (AUTO) 1.11 x10^3/uL (1-3.4); LYMPHOCYTES % (AUTO) 9 % (22-44); MD SCAN; MONOCYTES # (AUTO) 0.55 x10^3/uL (0.2-0.8); MONOCYTES % (AUTO) 4 % (2-9); NEUTROPHILS # (AUTO) 10.63 x10^3/uL (1.8-6.8); NEUTROPHILS % (AUTO) 86 % (42-75)
[2018-10-18] MEDS: LEVOTHYROXINE 100 MCG TABLET PO SCH (06:43)
[2018-10-18] MEDS: LACTOBACILLUS CHEW TABLET PO SCH ×4 (06:44→21:23)
[2018-10-18] MEDS: METRONIDAZOLE PMX 500MG/100ML 100 ML IV SCH ×3 (06:44→22:17)
[2018-10-18 07:03] VITALS: BP 159/89
[2018-10-18] MEDS: TEMPLATE NON-FORMULARY MED. (Budesonide/Formoterol Fumarate (Symbicort 160-4.5 Mcg Inhaler INH SCH (09:00)
[2018-10-18] MEDS: TEMPLATE NON-FORMULARY MED. (Tiotropium Bromide** (Spiriva**) 18 MCG) INH SCH (09:00)
[2018-10-18] MEDS: DULOXETINE 30 MG CAPSULE.DR PO SCH ×2 (09:19→21:23)
[2018-10-18] MEDS: CALCIUM/VITAMIN D3 250-125 TABLET PO SCH (09:19)
[2018-10-18] MEDS: ASPIRIN 81 MG TABLET EC PO SCH (09:19)
[2018-10-18] MEDS: OMEPRAZOLE 20 MG CAPSULE.DR PO SCH ×2 (09:19→21:23)
[2018-10-18] MEDS: LOSARTAN 50MG TABLET PO SCH (09:19)
[2018-10-18] MEDS: BUDESONIDE 0.5 MG/2 ML INHA NPPB SCH ×2 (09:40→20:00)
[2018-10-18] MEDS: CEFTRIAXONE PMX 1GM/50ML 50 ML IV SCH (10:51)
[2018-10-18] MEDS: HYDROcodone/APAP 5/325 TABLET PO PRN ×3 (10:54→21:24)
[2018-10-18 13:39] VITALS: BP 154/89
[2018-10-18 18:38] VITALS: BP 144/85
[2018-10-18] MEDS: SIMVASTATIN 40 MG TABLET PO SCH (21:23)
[2018-10-18] MEDS: MIRTAZAPINE 30 MG TABLET PO SCH (21:25)
[2018-10-19 01:49] VITALS: BP 141/84
[2018-10-19] MEDS: ALBUTEROL/IPRATROPIUM 2.5MG/0.5MG, 3 ML NPPB SCH ×2 (03:00→07:21)
[2018-10-19] MEDS: HYDROcodone/APAP 5/325 TABLET PO PRN ×2 (05:49→09:50)
[2018-10-19] MEDS: LACTOBACILLUS CHEW TABLET PO SCH ×2 (05:49→11:25)
[2018-10-19] MEDS: METRONIDAZOLE PMX 500MG/100ML 100 ML IV SCH ×2 (05:49→14:00)
[2018-10-19] MEDS: LEVOTHYROXINE 100 MCG TABLET PO SCH (05:49)
[2018-10-19 06:40] VITALS: BP 155/89
[2018-10-19] MEDS: BUDESONIDE 0.5 MG/2 ML INHA NPPB SCH (07:21)
[2018-10-19] MEDS: LOSARTAN 50MG TABLET PO SCH (08:22)
[2018-10-19] MEDS: ASPIRIN 81 MG TABLET EC PO SCH (08:22)
[2018-10-19] MEDS: DULOXETINE 30 MG CAPSULE.DR PO SCH (08:23)
[2018-10-19] MEDS: CALCIUM/VITAMIN D3 250-125 TABLET PO SCH (08:23)
[2018-10-19] MEDS: OMEPRAZOLE 20 MG CAPSULE.DR PO SCH (08:23)
[2018-10-19] MEDS: TEMPLATE NON-FORMULARY MED. (Tiotropium Bromide** (Spiriva**) 18 MCG) INH SCH (08:24)
[2018-10-19] MEDS: TEMPLATE NON-FORMULARY MED. (Budesonide/Formoterol Fumarate (Symbicort 160-4.5 Mcg Inhaler INH SCH (08:24)
[2018-10-19] MEDS ORDERED: POLYETHYLENE GLYCOL 17 GM PACKET NG ONE (09:00)
[2018-10-19] MEDS ORDERED: SENNA/DOCUSATE TABLET PO SCH (09:00)
[2018-10-19] MEDS ORDERED: ALBUTEROL/IPRATROPIUM 2.5MG/0.5MG, 3 ML NPPB PRN (11:00)
[2018-10-19] MEDS: CEFTRIAXONE PMX 1GM/50ML 50 ML IV SCH (11:25)
[2018-10-19 12:12] VITALS: BP 189/90
[2018-10-19] MEDS ORDERED: CEFD300C37 PO (13:36)
[2018-10-19] MEDS ORDERED: LOSA50TA14 PO (13:36)
[2018-10-19] MEDS ORDERED: SENN-177 PO (13:36)
[2018-10-19] MEDS ORDERED: METR-90 PO (13:36)
[2018-10-19] MEDS ORDERED: HYDR-3237 PO (13:36)
[2018-10-19] MEDS: BUTALB/APAP/CAFFEINE 50MG/325MG/40MG PO PRN (14:39)
[2018-10-19 14:41] VITALS: BP 147/89
== END 2018-10-19 15:10 | disposition home or self-care (01) | DRG 391 ==
LOC: ED 09:54 → EDIP 11:26 → 4NOR 12:52
PROVIDERS: ADMIT Internal Medicine; ATTEND Internal Medicine
DX: A09 Infectious gastroenteritis and colitis, unspecified (principal); N17.0 Acute kidney failure with tubular necrosis; E87.0 Hyperosmolality and hypernatremia; E44.0 Moderate protein-calorie malnutrition; J96.10 Chronic respiratory failure, unspecified whether with hypoxia or hypercapnia; E03.9 Hypothyroidism, unspecified; E11.9 Type 2 diabetes mellitus without complications; Z68.24 Body mass index [BMI] 24.0-24.9, adult; Z88.6 Allergy status to analgesic agent; Z88.0 Allergy status to penicillin; Z88.8 Allergy status to other drugs, medicaments and biological substances; E78.00 Pure hypercholesterolemia, unspecified; E78.5 Hyperlipidemia, unspecified; E86.0 Dehydration; E87.8 Other disorders of electrolyte and fluid balance, not elsewhere classified; G89.29 Other chronic pain; M54.9 Dorsalgia, unspecified; I10 Essential (primary) hypertension; I25.10 Atherosclerotic heart disease of native coronary artery without angina pectoris; I25.2 Old myocardial infarction; I69.30 Unspecified sequelae of cerebral infarction; J44.9 Chronic obstructive pulmonary disease, unspecified; M79.7 Fibromyalgia; M81.0 Age-related osteoporosis without current pathological fracture; Z79.84 Long term (current) use of oral hypoglycemic drugs; Z82.49 Family history of ischemic heart disease and other diseases of the circulatory system; Z86.711 Personal history of pulmonary embolism; Z87.891 Personal history of nicotine dependence; Z90.710 Acquired absence of both cervix and uterus; Z99.81 Dependence on supplemental oxygen; K59.00 Constipation, unspecified; Z66 Do not resuscitate; N30.90 Cystitis, unspecified without hematuria
CPT/HCPCS: 36415; 74177; 80048; 80053; 81001; 83690; 83735; 84100; 85025; 87086; 93005; 94640; 96365; 96367; 96375; G0378; J0696; J2405; J7620; J7626; Q9967; J0360; J1200; J2270; J7120